=== PATIENT | female | born 1960 | race African-American/Black ===

== ENCOUNTER 2016-04-09 21:14 | Emergency (ER) | payer OTHER ==
[2016-04-09] MEDS ORDERED: Haloperidol TAB* 5 MG PO ONE (22:04)
[2016-04-09] MEDS ORDERED: diPHENhydraMINE PO* 50 MG PO ONE (22:04)
[2016-04-09 22:12] LABS: Hematocrit 43 % (35-47); Hemoglobin 14.4 g/dl (12.0-16.0); Mean Corpuscular HGB Conc 34 g/dl (31-36); Mean Corpuscular Hemoglobin 28 pg (27-31); Mean Corpuscular Volume 84 fL (80-97); Mean Platelet Volume 10 um3 (7.4-10.4); Red Blood Count 5.12 10^6/ul (4.0-5.4); Red Cell Distribution Width 14 % (10.5-15)
[2016-04-09 22:21] LABS: Urine Bacteria 1+ (Absent); Urine Bilirubin Negative (Negative); Urine Glucose Negative (Negative); Urine Nitrite Negative (Negative)
[2016-04-09 22:28] LABS: ALT 16 U/L (7-52); AST 21 U/L (13-39); Albumin 4.3 g/dL (3.2-5.2); Alkaline Phosphatase 61 U/L (34-104); Anion Gap 4 mmol/L (2-11); BUN/Creatinine Ratio 15.9 (8-20); Blood Urea Nitrogen 11 mg/dL (6-24); CO2 Carbon Dioxide 31 mmol/L (22-32); Calcium 9.5 mg/dL (8.6-10.3); Chloride 103 mmol/L (101-111); EGFR African American 113.2 (>60); Globulin 3.4 g/dL (2-4); Glucose 57 mg/dL (70-100); Potassium 3.7 mmol/L (3.5-5.0); Sodium 138 mmol/L (133-145); Total Protein 7.7 g/dL (6.4-8.9)
[2016-04-09] MEDS ORDERED: LORazepam TAB(*) 1 MG ONE (22:28)
[2016-04-09 22:30] LABS: Benzodiazepine Urine Screen None Detected (None Detect)
[2016-04-09] MEDS ORDERED: Sulfamethox/Trimethoprim SS 400/80* TAB PO ONE (22:32)
[2016-04-09] MEDS ORDERED: LORazepam TAB(*) 1 MG PO ONE (22:32)
[2016-04-09 22:37] VITALS: BP 153/92
[2016-04-09 22:51] LABS: Acetaminophen < 15 mcg/mL; Alcohol < 10 mg/dL (<10); Salicylate < 2.50 mg/dL (<30)
[2016-04-09 23:02] LABS: TSH (Thyroid Stimulating Horm) 3.98 mcIU/mL (0.34-5.60)
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
== END 2016-04-10 13:40 | disposition home or self-care (01) ==
LOC: ED 21:14
DX: F29 Unspecified psychosis not due to a substance or known physiological condition (principal); Z87.891 Personal history of nicotine dependence
CPT/HCPCS: 36415; 80053; 80307; 80320; 80329; 81003; 81015; 84443; 85025; 87086; 99283; A9270-GY; G0480

== ENCOUNTER 2017-01-27 17:01 | Emergency (ER) | payer MEDICAID ==
[2017-01-27 17:38] VITALS: BP 111/72
[2017-01-27 17:54] LABS: Hematocrit 38 % (35-47); Mean Corpuscular HGB Conc 34 g/dl (31-36); Mean Corpuscular Hemoglobin 29 pg (27-31); Mean Corpuscular Volume 86 fL (80-97); Mean Platelet Volume 9 um3 (7.4-10.4); Red Blood Count 4.44 10^6/ul (4.0-5.4); Red Cell Distribution Width 14 % (10.5-15); White Blood Count 6.7 10^3/ul (3.5-10.8)
[2017-01-27 18:06] LABS: ALT 12 U/L (7-52); AST 17 U/L (13-39); Alkaline Phosphatase 60 U/L (34-104); Anion Gap 4 mmol/L (2-11); BUN/Creatinine Ratio 19.2 (8-20); Blood Urea Nitrogen 14 mg/dL (6-24); CO2 Carbon Dioxide 30 mmol/L (22-32); Calcium 8.9 mg/dL (8.6-10.3); Chloride 106 mmol/L (101-111); EGFR African American 106.1 (>60); EGFR Non-African American 82.5 (>60); Globulin 2.7 g/dL (2-4); Glucose 88 mg/dL (70-100); Potassium 3.6 mmol/L (3.5-5.0); Sodium 140 mmol/L (133-145); Total Protein 6.7 g/dL (6.4-8.9)
[2017-01-27 18:33] LABS: Acetaminophen < 15 mcg/mL; Alcohol < 10 mg/dL (<10); Salicylate < 2.50 mg/dL (<30)
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
[2017-01-27 18:49] LABS: TSH (Thyroid Stimulating Horm) 2.17 mcIU/mL (0.34-5.60)
[2017-01-27 20:01] LABS: Urine Bilirubin Negative (Negative); Urine Glucose Negative (Negative); Urine Nitrite Negative (Negative)
[2017-01-27 20:10] LABS: Benzodiazepine Urine Screen None Detected (None Detect)
== END 2017-01-27 20:50 | disposition home or self-care (01) ==
LOC: ED 17:01
DX: F29 Unspecified psychosis not due to a substance or known physiological condition (principal); F41.9 Anxiety disorder, unspecified; Z87.891 Personal history of nicotine dependence
CPT/HCPCS: 36415; 80053; 80307; 80320; 80329; 81003; 83880; 84443; 85025; 99282; G0480

== ENCOUNTER 2017-02-04 12:38 | Emergency (ER) | payer BC, MEDICAID ==
[2017-02-04 12:57] VITALS: BP 147/86
--- NOTE | 2017-02-04 14:36 | UC ---
Rehan Prasad Jason, scribed for [facility] HealthJoaquin MD on 02/04/17 at 1405 . Skin Complaint HPI - HPI Summary HPI Summary: In Room: This patient is a 56 year old F presenting to [facility] with a chief complaint of skin rash since 1 month ago in [facility]. The patient rates the pain 0/10 in severity. Symptoms aggravated by nothing. Symptoms alleviated by nothing. Patient reports arms, back, and chest rash. Patient denies itching, stomach pain, and sinus pain. Patient has never been to hospital overnight for treatment. Patient includes she had a UTI 1 month ago. MD note: VSS, AFEBRILE, BP 147/86. Every day smoker. Visit history: seen for itching skin in 2016, otherwise noncontributory. On no prescription medications. Hx of HTN and Depression. Nurses note: c/o of a "dry" rash on her forearms, torso and back area for the past month. Pt states the rash does not itch or is painful. She tried scabie tx x 2 for another rash 1 month ago and has tried "an eczema cream" on these areas with out any relief. - History of Current Complaint Chief Complaint: UCRash Time Seen by Provider: 02/04/17 13:53 Stated Complaint: SKIN COMPLAINT Hx Obtained From: Patient Hx Last Menstrual Period: menopausal Onset/Duration: Gradual Onset, Lasting Weeks - since 1 month, Still Present Pain Intensity: 0 Pain Scale Used: 0-10 Numeric Location: Other - arms, back, chest Character: Redness Aggravating Factor(s): Nothing Alleviating Factor(s): Nothing Associated Signs & Symptoms: Positive: Negative - stomach pain, sinus pain, itching - Allergy/Home Medications Allergies/Adverse Reactions: Allergies Allergy/AdvReac Type Severity Reaction Status Date / Time Acetaminophen AdvReac See Comment Verified 02/04/17 12:58 Review of Systems All Other Systems Reviewed And Are Negative: Yes - Comments Additional Review of Systems Comments: A 12 point review of systems was completed and significantly positive for: bilateral arm, chest, and back rash. Negative for: Itching, stomach pain, and sinus pain. The remainder of the review was negative except as stated above in the HPI. PMH/Surg Hx/FS Hx/Imm Hx Previously Healthy: No Cardiovascular History: Hypertension Psychological History: Depression Other History Of: Negative For: HIV, Hepatitis B, Hepatitis C, Anticoagulant Therapy - Surgical History Surgical History: Yes Surgery Procedure, Year, and Place: Appendectomy, C Section x 2 - Family History Known Family History: Positive: Cardiac Disease - brother -- [place] before age of 50. , Diabetes Negative: Hypertension - Social History Occupation: Unemployed Lives: [facility] Alcohol Use: Weekly Alcohol Amount: 2-3 drinks a week Substance Use Type: None Smoking Status (MU): Light Every Day Tobacco Smoker Type: Cigarettes Amount Used/How Often: variable Length of Time of Smoking/Using Tobacco: social, very rarely Have You Smoked in the Last Year: Yes When Did the Patient Quit Smoking/Using Tobacco: 1.5 years ago Household Exposure Type: Cigarettes Physical Exam Triage Information Reviewed: Yes Vital Signs: Initial Vital Signs Temp 98.1 F 02/04/17 12:49 Pulse 67 02/04/17 12:49 Resp 14 02/04/17 12:49 BP 147/86 02/04/17 12:49 Pulse Ox 100 02/04/17 12:49 - Additional Comments General: The patient is well-nourished in no acute distress and in no acute pain. Skin: The skin is warm and dry and skin color reflects adequate perfusion. On the left posterior thorax is a mildly erythematous maculopapular eruption, primarily at the level of T-12. On the front of right tibia, there is a somewhat excoriated rash consistent with injury or healing contact dermatitis. On both arms there's a fading maculopapular rash without vesicles. There is no sign of cellulitis. HEENT: The head is normocephalic and atraumatic. The pupils are equal and reactive. The conjunctivae are clear and without drainage.Nares are patent and without drainage. Mouth reveals moist mucous membranes and the throat is without erythema and exudate. The external ears are intact. The ear canals are patent and without drainage. The tympanic membranes are intact. Neck is supple with full range of motion and non-tender. There are no carotid bruits. There is no neck vein distension. Respiratory: Chest is non-tender. Lungs are clear to auscultation and breath sounds are symmetrical and equal. Cardiovascular: Heart is regular rate and rhythm. There is no murmur or rub auscultated. There is no peripheral edema and pulses are symmetrical and equal. Abdomen: The abdomen is soft and non-tender. There are normal bowel sounds heard in all four quadrants and there is no organomegaly palpated. Musculoskeletal: There is no back pain noted. Extremities are non-tender with full range of motion. There is good capillary refill. There is no peripheral edema or calf tenderness elicited. Neurological: Patient is alert and oriented to person, place and time. The patient has symmetrical motor strength in all four extremities. Cranial nerves are grossly intact. Deep tendon reflexes are symmetrical and equal in all four extremities. Psychiatric: The patient has an appropriate affect and does not exhibit any anxiety or depression Course/Dx - Course Course Of Treatment: This patient is a 56 year old F presenting to [facility] with a chief complaint of skin rash since 1 month ago in [facility]. Hypertensive BP reading 147/86; patient referred to PCP within 1 day-4 wks for follow-up. - Differential Diagnoses - Skin Complaint Differential Diagnoses: Other - cellulitis, contact dermititis, scabies, insect bite - Diagnoses Provider Diagnoses: contact dermititis Discharge - Discharge Plan Condition: Stable Disposition: HOME Patient Education Materials: Contact Dermatitis (ED) Referrals: No Primary Care Phys,NOPCP [Primary Care Provider] - Kevin Maguire MD [Medical Doctor] - 2 Weeks [facility] [place] PHYSICIAN REFERRAL [Outside] - As Soon As Possible (Rasheeda Torres) Additional Instructions: Thank you for helping us improve patient care by filling out the My Point Survey. WE DISCUSSED: 1. Your skin condition needs further evaluation. I have given you a number to call to find a general doctor and I have given you the name of a metal fabricator apprentice. 2. Use the cream twice a day to areas that are irritated or itch. Your arm rash appears to be getting better. 3. Pay particular attention to your legs. Watch for infection especially where you scratch. Allow your arms to get better. 4. Re check at any time for pain, temperature, redness or new symptoms. 5. Call the hospital for physician referral; call the metal fabricator apprentice for follow up. Your blood pressure reading today was 147/86 , indicating HYPERTENSION. Follow- up with your primary care provider within 4 weeks for blood pressure readings and further evaluation. PLEASE SEEK CARE AT THE EMERGENCY DEPARTMENT IF SYMPTOMS WORSEN OR IF NEW SYMPTOMS DEVELOP. FOLLOW UP WITH YOUR PRIMARY CARE PHYSICIAN. The documentation as recorded by the Rehan balbuena Jason accurately reflects the service I personally performed and the decisions made by me, Joaquin Cuello MD.
== END 2017-02-04 14:39 | disposition home or self-care (01) ==
LOC: UCEAST 12:38
DX: L25.9 Unspecified contact dermatitis, unspecified cause (principal); F17.210 Nicotine dependence, cigarettes, uncomplicated
CPT/HCPCS: 99212; G0463

== ENCOUNTER 2017-04-18 14:16 | Inpatient (IN) | payer BC, MEDICAID ==
[2017-04-18 15:37] LABS: ABS Basophils 0.1 10^3/ul (0-0.2); ABS Eosinophils 0.1 10^3/ul (0-0.6); ABS Lymphocytes 1.2 10^3/ul (1.0-4.8); ABS Monocytes 0.6 10^3/ul (0-0.8); ABS Neutrophils 6.4 10^3/ul (1.5-7.7); ABS Nucleated RBC 0.1 10^3/ul; Eosinophil % 1.6 % (0-6); Hematocrit 41 % (35-47); Hemoglobin 14.2 g/dl (12.0-16.0); Lymphocyte % 14.4 % (25-47); Mean Corpuscular HGB Conc 35 g/dl (31-36); Mean Corpuscular Hemoglobin 30 pg (27-31); Mean Corpuscular Volume 86 fL (80-97); Mean Platelet Volume 9 um3 (7.4-10.4); Nucleated Red Blood Cells % 0.6; Platelet Count 260 10^3/ul (150-450); Red Blood Count 4.77 10^6/ul (4.0-5.4); Red Cell Distribution Width 14 % (10.5-15); White Blood Count 8.5 10^3/ul (3.5-10.8)
[2017-04-18 15:49] LABS: Urine Appearance Clear; Urine Blood 1+ (Negative); Urine Color Straw; Urine Ketones Negative (Negative); Urine Protein Negative (Negative); Urine Specific Gravity 1.001 (1.010-1.030); Urine Urobilinogen Negative (Negative)
[2017-04-18 15:54] LABS: EGFR Non-African American 83.5 (>60)
[2017-04-18] MEDS ORDERED: Hydrochlorothiazide TAB* 25 MG PO ONE (20:31)
--- NOTE | 2017-04-18 21:04 | RAD ---
Indication: Stroke. CT of the brain was performed without IV contrast. Ventricular structures are midline. No midline shift is noted. The extraction spaces are unremarkable. There is no evidence of intracranial mass or hemorrhage. No other high or low density lesions are identified. Mastoid air cells and paranasal sinuses are otherwise unremarkable. No significant changes noted since January 12, 2016. IMPRESSION: No intracranial mass or hemorrhage is noted.
--- NOTE | 2017-04-18 22:00 | PN ---
Sofy Prasad Edward, scribed for Adamaris Holliday MD on 04/18/17 at 2156 . Progress Note - Progress Note Date of Service: 04/18/17 Note: Pt signed out by Dr. Carpenter. After MH eval by Dr. Valera, pt will be admitted to [facility]. Dx: unspecified psychosis. The documentation as recorded by the Sofy balbuena Edward accurately reflects the service I personally performed and the decisions made by Miya jaimes Abdul, MD.
[2017-04-19] MEDS ORDERED: Al Hydrox/Mg Hydrox/Simet LIQ* 30 ML UDC PO PRN (00:58)
[2017-04-19] MEDS: Vitamin THERAPEUTIC TAB PO SCH (09:40)
--- NOTE | 2017-04-19 09:51 | ADMNOTE ---
History - Objective HPI: Psychiatric Attending History and Physical NAME: Tiffanie Huerta : 1960 AGE: 57 PROVIDER: Bruce Schrader D.O. DATE OF ADMISSION: 04/18/2017 JUSTIFICATION FOR ADMISSION: Patient is gravely disabled secondary to psychosis and has grossly impaired judgment which places her at risk to be danger to self or others. She requires imminent inpatient psychiatric admission on an involuntary basis for treatment and stabalization. 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 It appears that she began experiencing ideas of reference at work about 5 years ago which have progressed to paranoid ideation, delusions that she is being harrassed or "played with". Patient has been living in [facility] in [place] since returning from [place]. She has been out of work since May 2015. She has applied for jobs but has not been able to secure a new position. Patient has been living at the [facility] through [facility]. Patient called an ambulance as she was concerned about multiple bites on her arms and chest which she believed were bug bites. She has been increasingly preoccupied with what she believes are messages from the TV which she refers to as "words which are being spliced into the conversation of people acting on the TV". she believes that she has a gift of being able to decipher these messages. Some of the messages have been derogatory comments such as "Bitch" or "Whore" which she believes may be directed at her by unknown person or persons. Other messages are coming from drug dealers announcing that a drug deal is going to take place. Patient feels compelled to share these messaages she is receving with legal authorities. She went to [facility] in recent past and also called in a report by phone. She is frustrated as she doesn't believe she was taken seriously. Apparently she called the police again yesterday and when they arrived she was disorganized and delusional, claiming that she was a lab rat for [facility] [employer] and that she is being monitored by the government through a microchip which has been implanted in her upper arm. She also told police that [place] had changed since she was last here because the mountains have been [place]. Patient reported in ER that she was "mentally distressed" and "not mentally safe" because she had been "contaminated over and over". Denies history of head trauma,epilepsy, psychiatric illness, or drug abuse. PAST PSYCHIATRIC HISTORY: Patient denies history of psychiaric illness, treatment or hospitalization denies history of diagnosed psychosis, mood disorder, neurological disorder SUBSTANCE ABUSE HISTORY: Reports drinking alcohol three times daily smokes 2 to 3 cigarettes daily PAST MEDICAL HISTORY: denies history of Csection X2 history of appendectomy CURRENT MEDICATIONS: none FAMILY PSYCHIATRIC HISTORY: reports that no one that she knows has been diagnosed with psychiatric disorder in her family but she believes that her brothers both suffer from depression FAMILY/PSYCHOSOCIAL HISTORY: Born in the [place] to [place] parents. graduated high school in [place]. 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 Subsequently, she got to an [facility] with who she had two children and moved with family to [place] where she raised her children. 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 Patient reports it was on this job that she began to have belief that "bizarre stuff is going on". She relates that she was accused of taking pictures of other employees. but maintains that the opposite was true. That is, she believes employees at that job were taking photographs of her secretly. Patient reports that after leaving this position she worked at [employer] where she worked for two years. She related that she saw alot of suspicious behaviors there as well which she believes were covert and bizqarre. She believes employers were trying to communicate something to her through bizarre behaviors of the employees although she is unable to say exactly what the content of those communications were. 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 She was very suspicious of things said to her by other employees, believing that there was hidden meaning in the choice of words. She was perplexed but believed that people may have been conspiring against her. Patient reports that she has two sons. Jose Alberto aged 21 works two jobs and lives in [place]. 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 patient reprots she has friends but feels very bad athat she doesn't have money. She identifies lack of money as her main stressor. family lives in [place]. She has 1 brother . two brothers and one sister live in the [place]. She denies legal probelms or history of incarceration. She also denies history of physical or sexual Trauma. REVIEW OF SYSTEMS: all noncontributory per hospitalist's H and P performed in ED PHYSICAL EXAMINATION: UNREMARKABLE (NORMAL PHYSICAL EXAMINATION) per hospitalist 's H and P performed in the ED Addendum to physical Exam: patient has raised red papules on both upper extremities and scattered on face and neck as well which resemble insect bites. right eye with upper lid edema. Extraocular muscles intact, conjunctivae not injected no discharge from eye there is a papule directly above right upper lid patient denies eye pain or photophobia MENTAL STATUS EXAMINATION: well developed and nourished 57 year old woman who has a thin frame. Patient appears mildly disheveled. Her hygiene would best be described as fair. she was fairly well related. speech does appear mildly pressured and mildly hyperverbal. normal volume and rhythm. she speaks c[place] islander perfectly and is articulate with good vocabulary. patient reports mood as euthymic. she denies dysphoria, amotivation, anergia, anhedonia. she admits to feeling hopeless, and a loss of interest because she cant secure a job and has no money with which to go out with . she denies past history or current suicidal ideation. she denies HI. she further denies AH,VH. Thought process: patient is mostly goal directed and organized. she is not tangential, does not exhibit thought blocking. she denies racing thoughts. Her responses are relevant. Thought content reveals that patient has been grappling for many years with referential thinking , paranoid and bizarre delusions which range from the belief that she is being used as a lab rat by [facility] [employer] to believing that innocent remarks or getstures made by coworkers have a sublimal or hidden meaning which signifies that someone is trying to harrass her, or iinsult her or play games with her. She also believes that she is receiving hidden messages from the TV which communicate illegal activities which are going to take place and which she feels compelled to report to authorities. Alert and fully oriented. Denies memory, concentration problems. Insight is limited. Judgment appears somewhat impaired by delusional thinking. LABORATORY DATA: Laboratory Results - last 24 hr 04/19/17 04/19/17 06:56 06:56 Hemoglobin A1c 5.1 Triglycerides 85 Cholesterol 188 LDL Cholesterol 116 HDL Cholesterol 55.0 Laboratory Last Values WBC 8.5 10^3/ul (3.5-10.8) 04/18/17 15:25 RBC 4.77 10^6/ul (4.0-5.4) 04/18/17 15:25 Hgb 14.2 g/dl (12.0-16.0) 04/18/17 15:25 Hct 41 % (35-47) 04/18/17 15:25 MCV 86 fL (80-97) 04/18/17 15:25 MCH 30 pg (27-31) 04/18/17 15:25 MCHC 35 g/dl (31-36) 04/18/17 15:25 RDW 14 % (10.5-15) 04/18/17 15:25 Plt Count 260 10^3/ul (150-450) 04/18/17 15:25 MPV 9 um3 (7.4-10.4) 04/18/17 15:25 Neut % (Auto) 76.0 % (38-83) 04/18/17 15:25 Lymph % (Auto) 14.4 % (25-47) L 04/18/17 15:25 Caroline % (Auto) 7.4 % (0-7) H 04/18/17 15:25 Eos % (Auto) 1.6 % (0-6) 04/18/17 15:25 Baso % (Auto) 0.6 % (0-2) 04/18/17 15:25 Absolute Neuts (auto) 6.4 10^3/ul (1.5-7.7) 04/18/17 15:25 Absolute Lymphs (auto) 1.2 10^3/ul (1.0-4.8) 04/18/17 15:25 Absolute Monos (auto) 0.6 10^3/ul (0-0.8) 04/18/17 15:25 Absolute Eos (auto) 0.1 10^3/ul (0-0.6) 04/18/17 15:25 Absolute Basos (auto) 0.1 10^3/ul (0-0.2) 04/18/17 15:25 Absolute Nucleated RBC 0.1 10^3/ul 04/18/17 15:25 Nucleated RBC % 0.6 04/18/17 15:25 Sodium 136 mmol/L (133-145) 04/18/17 15:25 Potassium 3.9 mmol/L (3.5-5.0) 04/18/17 15:25 Chloride 102 mmol/L (101-111) 04/18/17 15:25 Carbon Dioxide 28 mmol/L (22-32) 04/18/17 15:25 Anion Gap 6 mmol/L (2-11) 04/18/17 15:25 BUN 9 mg/dL (6-24) 04/18/17 15:25 Creatinine 0.72 mg/dL (0.51-0.95) 04/18/17 15:25 Est GFR ( Amer) 107.4 (>60) 04/18/17 15:25 Est GFR (Non-Af Amer) 83.5 (>60) 04/18/17 15:25 BUN/Creatinine Ratio 12.5 (8-20) 04/18/17 15:25 Glucose 97 mg/dL (70-100) 04/18/17 15:25 Hemoglobin A1c 5.1 % (4.0-5.6) 04/19/17 06:56 Calcium 9.6 mg/dL (8.6-10.3) 04/18/17 15:25 Total Bilirubin 0.40 mg/dL (0.2-1.0) 04/18/17 15:25 AST 19 U/L (13-39) 04/18/17 15:25 ALT 17 U/L (7-52) 04/18/17 15:25 Alkaline Phosphatase 60 U/L (34-104) 04/18/17 15:25 Total Protein 7.5 g/dL (6.4-8.9) 04/18/17 15:25 Albumin 4.4 g/dL (3.2-5.2) 04/18/17 15:25 Globulin 3.1 g/dL (2-4) 04/18/17 15:25 Albumin/Globulin Ratio 1.4 (1-3) 04/18/17 15:25 Triglycerides 85 mg/dL 04/19/17 06:56 Cholesterol 188 mg/dL 04/19/17 06:56 LDL Cholesterol 116 mg/dL 04/19/17 06:56 HDL Cholesterol 55.0 mg/dL 04/19/17 06:56 TSH 2.05 mcIU/mL (0.34-5.60) 04/18/17 15:25 Urine Color Straw 04/18/17 15:35 Urine Appearance Clear 04/18/17 15:35 Urine pH 6.0 (5-9) 04/18/17 15:35 Ur Specific [place] 1.001 (1.010-1.030) L 04/18/17 15:35 Urine Protein Negative (Negative) 04/18/17 15:35 Urine Ketones Negative (Negative) 04/18/17 15:35 Urine Blood 1+ (Negative) H 04/18/17 15:35 Urine Nitrate Negative (Negative) 04/18/17 15:35 Urine Bilirubin Negative (Negative) 04/18/17 15:35 Urine Urobilinogen Negative (Negative) 04/18/17 15:35 Ur Leukocyte Esterase Negative (Negative) 04/18/17 15:35 Urine WBC (Auto) Absent (Absent) 04/18/17 15:35 Urine RBC (Auto) Absent (Absent) 04/18/17 15:35 Ur Squamous Epith Cells Present (Absent) H 04/18/17 15:35 Urine Bacteria 1+ (Absent) H 04/18/17 15:35 Urine Glucose Negative (Negative) 04/18/17 15:35 Salicylates < 2.50 mg/dL (<30) 04/18/17 15:25 Urine Opiates Screen None detected (None Detect) 04/18/17 15:35 Acetaminophen < 15 mcg/mL 04/18/17 15:25 Ur Barbiturates Screen None detected (None Detect) 04/18/17 15:35 Ur Phencyclidine Scrn None detected (None Detect) 04/18/17 15:35 Ur Amphetamines Screen None detected (None Detect) 04/18/17 15:35 U Benzodiazepines Scrn None detected (None Detect) 04/18/17 15:35 Urine Cocaine Screen None detected (None Detect) 04/18/17 15:35 U Cannabinoids Screen None detected (None Detect) 04/18/17 15:35 Serum Alcohol < 10 mg/dL (<10) 04/18/17 15:25 IMPRESSION: 57 yo homeless woman with solid work history since age 19 and no past psychiatric history presents with onset of psychosis over the past 5 to 7 years. It appears that symptoms started with ideas of reference and progressed on to parnaoid and persecutory delusions. Presently patient presents with bizarre delusions that TV is communuicating with her. patient denies any past psychiatric treatment or hospitalization. patient has not worked in 2 years consistent with psychotic disorder. differential includes psychotic depression (no evidence of depression), schizophrenia (unlikely secondary to late onset), secondary psychosis (CT normal no history of HTN,diabetes, neurological disorder, head trauma, MS). Patient most likely has delusional disorder persecutory type, although unspecified psychosis is also possible. other possiblity is drug or alcohol related paranoid disorder. DIAGNOSES: Unspecified psychotic disorder rule out Delusional Disorder rule out alcohol induced paranoid disorder rule out paranoid personality disorder with superimposed delusional disorder or psychotic depression PLAN: q 15 min observation status patient is involuntary status 939 individiual and group therapy, milieu increase data base by talking with patient's family or friends MMPI and Psychological consult appreciated to delineate diagnosis which is unclear at this point. temazepam 15 mg QHS prn insomnia no other meds until after psychological consult discharge planning and social work consult. Lab Results: Laboratory Tests 04/19/17 04/19/17 06:56 06:56 Hemoglobin A1c 5.1 Triglycerides 85 Cholesterol 188 LDL Cholesterol 116 HDL Cholesterol 55.0 Plan - Treatment Plan Medications: Current Medications Al Hydrox/Mg Hydrox/Simethicone (Maalox Plus*) 30 ml PO Q4H PRN PRN Reason: INDIGESTION Multivitamins (Theragran Tab*) 1 tab PO DAILY ELIZABETH Last Admin: 04/19/17 09:40 Dose: Not Given
--- NOTE | 2017-04-19 10:25 | ED ---
Jignesh Prasad Thomas, scribed for Daniel Carpenter MD on 04/18/17 at 1518 . Complex/Multi-Sys Presentation - HPI Summary HPI Summary: The patient is a 57 year old female who states she is coming to the emergency department for evaluation of sparse welts throughout her body that she attributes to bed bugs. The patient is staying at the [facility]. Per nursing documentation, the patient was brought in to the emergency department by a state police clerk. The patient told the officer that she is a lab rat at [employer] and that the government implanted a chip into her arm. The patient states the mountains around [place] were all moved since I was last here. - History Of Current Complaint Chief Complaint: EDMentalHealth Time Seen by Provider: 04/18/17 14:31 Hx Obtained From: Patient Onset/Duration: Still Present Timing: Constant Severity Currently: Mild Severity Initially: Mild Location: Negative - sparse diffuse welts Alleviating Factor(s): None Associated Signs And Symptoms: Positive: Other - Paranoia, welts - Allergies/Home Medications Allergies/Adverse Reactions: Allergies Allergy/AdvReac Type Severity Reaction Status Date / Time acetaminophen AdvReac See Comment Verified 04/19/17 01:38 PMH/Surg Hx/FS Hx/Imm Hx Endocrine/Hematology History: Denies: Hx Anticoagulant Therapy, Hx Diabetes, Hx Thyroid Disease Cardiovascular History: Reports: Hx Hypertension - pre Denies: Hx Congestive Heart Failure, Hx Deep Vein Thrombosis, Hx Myocardial Infarction, Hx Pacemaker/ICD Respiratory History: Denies: Hx Asthma, Hx Chronic Obstructive Pulmonary Disease (COPD), Hx Lung Cancer, Hx Pneumonia, Hx Pulmonary Embolism GI History: Denies: Hx Gall Bladder Disease, Hx Gastrointestinal Bleed, Hx Ulcer, Hx Urosepsis History: Denies: Hx Kidney Stones, Hx Renal Disease Neurological History: Denies: Hx Dementia, Hx Migraine, Hx Seizures, Hx Transient Ischemic Attacks (TIA) Psychiatric History: Denies: Hx Anxiety, Hx Eating Disorder, Hx Depression, Hx Schizophrenia, Hx Bipolar Disorder, Hx of Violent Episodes Against Others - Surgical History Surgery Procedure, Year, and Place: Appendectomy, C Section x 2 Infectious Disease History: No Infectious Disease History: Denies: Hx Hepatitis, Hx Human Immunodeficiency Virus (HIV), History Other Infectious Disease, Traveled Outside the [place] in Last 30 Days - Family History Known Family History: Positive: Cardiac Disease - brother -- [place] before age of 50. , Diabetes Negative: Hypertension - Social History Alcohol Use: Weekly Alcohol Amount: 2-3 drinks a week Hx Substance Use: No Substance Use Type: Reports: None Hx Tobacco Use: Yes Smoking Status (MU): Light Every Day Tobacco Smoker Type: Cigarettes Amount Used/How Often: variable Length of Time of Smoking/Using Tobacco: social, very rarely Have You Smoked in the Last Year: Yes Review of Systems Negative: Fever Positive: Other - Welts Positive: Other - Paranoia All Other Systems Reviewed And Are Negative: Yes Physical Exam - Summary Physical Exam Summary: Appearance: The patient is well-nourished in no acute distress and in no acute pain. Skin: There are small red welts sparsely on her face and arms. The skin is warm and dry and skin color reflects adequate perfusion. HEENT: The head is normocephalic and atraumatic. The pupils are equal and reactive. The conjunctivae are clear and without drainage. Nares are patent and without drainage. Mouth reveals moist mucous membranes and the throat is without erythema and exudate. The external ears are intact. The ear canals are patent and without drainage. The tympanic membranes are intact. Neck: the neck is supple with full range of motion and non-tender. There are no carotid bruits. There is no neck vein distension. Respiratory: Chest is non-tender. Lungs are clear to auscultation and breath sounds are symmetrical and equal. Cardiovascular: Heart is regular rate and rhythm.~There is no murmur or rub auscultated.~There is no peripheral edema and pulses are symmetrical and equal. Abdomen: The abdomen is soft and non-tender. There are normal bowel sounds heard in all four quadrants and there is no organomegaly palpated. Musculoskeletal: There is no back tenderness noted. Extremities are non-tender with full range of motion. There is good capillary refill. There is no peripheral edema or calf tenderness elicited. Neurological: Patient is alert and oriented to person, place and time. The patient has symmetrical motor strength in all four extremities. Cranial nerves are grossly intact. Deep tendon reflexes are symmetrical and equal in all four extremities. Psychiatric: The patient has an appropriate affect and does not exhibit any anxiety or depression. Triage Information Reviewed: Yes Vital Signs On Initial Exam: Initial Vitals Temp Pulse Resp BP Pulse Ox 98.2 F 78 18 161/103 100 04/18/17 14:48 04/18/17 14:48 04/18/17 14:48 04/18/17 14:48 04/18/17 14:48 Vital Signs Reviewed: Yes Diagnostics - Vital Signs Vital Signs Temp Pulse Resp BP Pulse Ox 04/18/17 14:48 98.2 F 78 18 161/103 100 - Laboratory Lab Results: Lab Results 04/18/17 04/18/17 04/18/17 Range/Units 15:25 15:25 15:35 WBC 8.5 (3.5-10.8) 10^3/ul RBC 4.77 (4.0-5.4) 10^6/ul Hgb 14.2 (12.0-16.0) g/dl Hct 41 (35-47) % MCV 86 (80-97) fL MCH 30 (27-31) pg MCHC 35 (31-36) g/dl RDW 14 (10.5-15) % Plt Count 260 (150-450) 10^3/ul MPV 9 (7.4-10.4) um3 Neut % (Auto) 76.0 (38-83) % Lymph % (Auto) 14.4 L (25-47) % Addison % (Auto) 7.4 H (0-7) % Eos % (Auto) 1.6 (0-6) % Baso % (Auto) 0.6 (0-2) % Absolute Neuts (auto) 6.4 (1.5-7.7) 10^3/ul Absolute Lymphs (auto) 1.2 (1.0-4.8) 10^3/ul Absolute Monos (auto) 0.6 (0-0.8) 10^3/ul Absolute Eos (auto) 0.1 (0-0.6) 10^3/ul Absolute Basos (auto) 0.1 (0-0.2) 10^3/ul Absolute Nucleated RBC 0.1 10^3/ul Nucleated RBC % 0.6 Sodium 136 (133-145) mmol/L Potassium 3.9 (3.5-5.0) mmol/L Chloride 102 (101-111) mmol/L Carbon Dioxide 28 (22-32) mmol/L Anion Gap 6 (2-11) mmol/L BUN 9 (6-24) mg/dL Creatinine 0.72 (0.51-0.95) mg/dL Est GFR ( Amer) 107.4 (>60) Est GFR (Non-Af Amer) 83.5 (>60) BUN/Creatinine Ratio 12.5 (8-20) Glucose 97 (70-100) mg/dL Calcium 9.6 (8.6-10.3) mg/dL Total Bilirubin 0.40 (0.2-1.0) mg/dL AST 19 (13-39) U/L ALT 17 (7-52) U/L Alkaline Phosphatase 60 (34-104) U/L Total Protein 7.5 (6.4-8.9) g/dL Albumin 4.4 (3.2-5.2) g/dL Globulin 3.1 (2-4) g/dL Albumin/Globulin Ratio 1.4 (1-3) TSH 2.05 (0.34-5.60) mcIU/mL Urine Color Urine Appearance Urine pH (5-9) Ur Specific [place] (1.010-1.030) Urine Protein (Negative) Urine Ketones (Negative) Urine Blood (Negative) Urine Nitrate (Negative) Urine Bilirubin (Negative) Urine Urobilinogen (Negative) Ur Leukocyte Esterase (Negative) Urine WBC (Auto) (Absent) Urine RBC (Auto) (Absent) Ur Squamous Epith Cells (Absent) Urine Bacteria (Absent) Urine Glucose (Negative) Salicylates < 2.50 (<30) mg/dL Urine Opiates Screen None detected (None Detect) Acetaminophen < 15 mcg/mL Ur Barbiturates Screen None detected (None Detect) Ur Phencyclidine Scrn None detected (None Detect) Ur Amphetamines Screen None detected (None Detect) U Benzodiazepines Scrn None detected (None Detect) Urine Cocaine Screen None detected (None Detect) U Cannabinoids Screen None detected (None Detect) Serum Alcohol < 10 (<10) mg/dL 04/18/17 Range/Units 15:35 WBC (3.5-10.8) 10^3/ul RBC (4.0-5.4) 10^6/ul Hgb (12.0-16.0) g/dl Hct (35-47) % MCV (80-97) fL MCH (27-31) pg MCHC (31-36) g/dl RDW (10.5-15) % Plt Count (150-450) 10^3/ul MPV (7.4-10.4) um3 Neut % (Auto) (38-83) % Lymph % (Auto) (25-47) % Addison % (Auto) (0-7) % Eos % (Auto) (0-6) % Baso % (Auto) (0-2) % Absolute Neuts (auto) (1.5-7.7) 10^3/ul Absolute Lymphs (auto) (1.0-4.8) 10^3/ul Absolute Monos (auto) (0-0.8) 10^3/ul Absolute Eos (auto) (0-0.6) 10^3/ul Absolute Basos (auto) (0-0.2) 10^3/ul Absolute Nucleated RBC 10^3/ul Nucleated RBC % Sodium (133-145) mmol/L Potassium (3.5-5.0) mmol/L Chloride (101-111) mmol/L Carbon Dioxide (22-32) mmol/L Anion Gap (2-11) mmol/L BUN (6-24) mg/dL Creatinine (0.51-0.95) mg/dL Est GFR ( Amer) (>60) Est GFR (Non-Af Amer) (>60) BUN/Creatinine Ratio (8-20) Glucose (70-100) mg/dL Calcium (8.6-10.3) mg/dL Total Bilirubin (0.2-1.0) mg/dL AST (13-39) U/L ALT (7-52) U/L Alkaline Phosphatase (34-104) U/L Total Protein (6.4-8.9) g/dL Albumin (3.2-5.2) g/dL Globulin (2-4) g/dL Albumin/Globulin Ratio (1-3) TSH (0.34-5.60) mcIU/mL Urine Color Straw Urine Appearance Clear Urine pH 6.0 (5-9) Ur Specific [place] 1.001 L (1.010-1.030) Urine Protein Negative (Negative) Urine Ketones Negative (Negative) Urine Blood 1+ H (Negative) Urine Nitrate Negative (Negative) Urine Bilirubin Negative (Negative) Urine Urobilinogen Negative (Negative) Ur Leukocyte Esterase Negative (Negative) Urine WBC (Auto) Absent (Absent) Urine RBC (Auto) Absent (Absent) Ur Squamous Epith Cells Present H (Absent) Urine Bacteria 1+ H (Absent) Urine Glucose Negative (Negative) Salicylates (<30) mg/dL Urine Opiates Screen (None Detect) Acetaminophen mcg/mL Ur Barbiturates Screen (None Detect) Ur Phencyclidine Scrn (None Detect) Ur Amphetamines Screen (None Detect) U Benzodiazepines Scrn (None Detect) Urine Cocaine Screen (None Detect) U Cannabinoids Screen (None Detect) Serum Alcohol (<10) mg/dL Result Diagrams: 04/18/17 15:25 04/18/17 15:25 Lab Statement: Any lab studies that have been ordered have been reviewed, and results considered in the medical decision making process. Complex Multi-Symp Course/Dx Course Of Treatment: Ms Huerta presented with a concern for bug bites and does, indeed, appear to have some bug bites, She was clearly delusional when she called the police to report the bug bites and, therefore, brought in on a 941. She continued with delusional statements here and was medically cleared. She is in the Flex Unit awaiting a MHE at change of shift. - Diagnoses Provider Diagnoses: Acute psychosis Discharge - Discharge Plan Condition: Stable Disposition: OTHER Discharge Disposition Comment: Signed over to Dr. Holliday at change of shift The documentation as recorded by the Jignesh balbuena Thomas accurately reflects the service I personally performed and the decisions made by me, Daniel Carpenter MD.
[2017-04-19] MEDS ORDERED: ALPRAZolam TAB* 0.25 MG PO PRN (15:09)
[2017-04-19] MEDS ORDERED: Temazepam CAP* 15 MG PO PRN (15:09)
[2017-04-20] MEDS: Vitamin THERAPEUTIC TAB PO SCH (09:46)
--- NOTE | 2017-04-20 16:06 | PN ---
Subjective - Subjective Subjective: PSYCHIATRIC ATTENDING PROGRESS NOTE Patient did not attend any groups today. She put in a 72 hour letter yesterday requesting discharge from the hospital. Patient spent most of the morning pacing the halls and requesting to speak with me. I met with the patient after lunch. She was upset and angry that she was not being permitted to discharge from the hospital. I requested that she sign a release of information to speak with someone who knew her such as a family member or friend. She questioned me about this, suspicious of my motives and verbalized whether I would attempt to tell untruths about her. I shared that the purpose of speaking to someone she knows would be to learn what her baseline emotional and mental functioning is and to ask whether they believe that your current mental functioning is at baseline or has changed. Patient subsequently told me it would be ok to talk with her son and her close friend who is a social worker health services. I asked patient to sign IAN. patient subsequently perseverated on my calling the individuals, concerned about what I would say. She then indicated that she did n ot want me to talk to her son but would allow me to talk to her friend. When I asked for her signature she requested that I write out exactly what information I was requesting. She then insisted that I rewrite certain words which she didn't feel were legible as she was concerned that these words might be misinterpreted. For the rest of the afternoon patient was somewhat agitated pacing the halls asking to speak with me, expecting that I would speak to her friend and would discharge her today (which I never told her). nursery worker and I attempted to reach friend Danette Austin at [phone] but reached a voice maiil and left message for her to return the call. patient continued to ask nurses about talking with me. I came out and explained that I had not reached friend but left message. Patient became agitated, speaking in loud voice. she clearly was angry and insisted that she be discharged. she began to devalue the hospital, the staff. She became somewhat disroganized, and began talking about being a lab rat, stating that she was being mistreated. when asked to lower her voice due to effect on other patients, she became louder, stating that it was good that the other patient's heard what was happening. Patient's behavioral and verbal responses suggest antisocial, paranoid, borderline character pathology. Her belief that she is being toyed with, harrassed, mistreated, receiving communications from the the TV and reading hidden meaning into things she sees, hears on TV is consistent with persecutory delusions. 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 She appears to have had deterioratioin across multiple domains of functioning including occupational, social and familial over the past 5 to 7 years likely due to paranoid ideation which has developed into full blown delusional belief system which has both persecutory and bizarre themes. patient's psychotic symptoms are causing her to become agitated and causing her to become confrontational and angry as she feels threatened. The presence of agitation and the belief that one is being threatened is a potential antecedent to violence/agression. At this time it is my professional opinion that patient requires on going 24 hour supervision on an inpatient psychiatric unit as she is potential danger to self or others. Patient's condition requires medical treatment. patient is gravely disabled, has poor insight, and has severely imipaired judgment. She lacks the capacity to make informed medical decisions on her own behalf. For this reason I will apply to probate court to permit us to retain patient in the hospital. I will also request treatment against objection as patient has made it clear that she refuses to accept any medical treatment for a condition that she doesnt believe exists. court date is set for this coming Wednesday04/23/2017 Plan: as above will write patiient for ativan 1mg and haldol 2 mg q 4h prn agitation but it is unlikely that patient will consent to take it if it is offered.
--- NOTE | 2017-04-20 20:21 | CONS ---
PSYCHOLOGICAL REPORT: DATE OF CONSULTATION: 04/20/17 REASON FOR REFERRAL: Tiffanie or "Geeta" was referred for personality testing secondary to concerns regarding possible psychotic range disturbance. TESTS ADMINISTERED: Geeta completed the [place] Multiphasic Personality Inventory-2 (MMPI-2) in an efficient fashion. She was given feedback regarding results of individual conversation. RELEVANT HISTORY: Geeta is a 57-year-old woman of [place] descent who had recently returned to [place], [place] from [facility] where she had been living for the past year. To summarize her history succinctly, she had moved up here to be and raised 2 sons. 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 She described her difficulties while working at the [place] [employer] where she felt she was being harassed and manipulated by employees there and in fact went to the union to make complaints about her concerns. She has been out of work since May 2015 and has applied for work, but has not been able to secure any position. She feels this is reflective of ageism in terms of her difficulties in finding new employment. She also describes perceptions that she was receiving messages from TV. In conversation with this staff writer, Geeta discussed how difficulties in different work circumstances continued to recur where she was being harassed by employees in various circumstances. Geeta currently presents as relevant and coherent in conversation and is polite and respectful. She does not display insight regarding discussion of paranoid mentation and becomes quite defensive in this conversation. She is demanding discharge immediately and is fixated on her recent difficulties with staying in a local hotel through the homeless long-term where she appears to have been bitten by bedbugs or some similar insect of some sort. Her difficulties with these bites seem to be dissipating quickly. She describes intentions and hopes of secured employment, so she can find stable housing, but does not describe any active interview opportunities presently. TEST RESULTS: Geeta elevates both the FB and the lie scale on validity indicators with both elevations here occurring with T scores in the middle 70s. Despite these being elevated, her clinical profile is felt to be valid as it does reflect significantly elevated paranoia scale (T = 75) with a minor elevation on schizophrenia scale (T = 65). She does not elevate the depression nor the hypomania scales. It is thought that Geeta provides us with a valid protocol, although it impresses this staff writer as "the best foot forward" endorsement style. This means that her elevated paranoia scale is likely to have been higher if she was not trying to deny psychopathologies to some degree. IMPRESSION AND RECOMMENDATIONS: Presently, Geeta impresses as having impaired insight regarding her significant paranoid symptomatology, which includes ideas of reference. Her recurrent difficulties in various work place environments and subsequent failure to maintain employment is felt to be secondary to what may be paranoid personality disorder, or perhaps a persecutory delusional disorder. Her lack of insight is fundamental to formulation of the case in that she is very defended and is hoping the hospital could help initiate various investigations in her different places of employment to prove her suspicions. Feedback encouraged her to be compliant with recommended medications and give this hospitalization more time, so she could be monitored if she did begin to take medications. She was adamant and steadfast in her denial of any psychopathology as well as in demanding immediate discharge. [id number]/[facility] #: [id number] LILIA
--- NOTE | 2017-04-21 10:28 | PN ---
Subjective - Subjective Subjective: PSYCHIATRIC ATTENDING PROGRESS NOTE: continues to isolate in room. does not attend groups patient met with cad design engineer today who will be representing her at court on Wednesday. Patient agreed to be interviewed today. She was not volatile and angry and agitated as she was yesterday. Left message with patient's friend (this is second message, first message left yesterday by social media strategist) to please call either myself or social media strategist I explained to her that I was going to court to retain her in the hospital as I was concerned about her psychotic symptoms which are interfering with her ability to function independently and safetly in the community. Patient disagrees. She tells me that she appreciates my concern but that she intends to explain to the mine geologist that she has seen messages being spliced into the television programs She has reported it to various authorities such as management at the hotel, the police and the FBI. She believes firmly that she can prove through "certain technologies" that these messages are in fact occurring on the TV. She believes mine geologist will rule in her favor. MSE: remains highly defensive, mildly agitated patient is organized and coherent. she continues to be highly suspicious, untrusting, paranoid and has xenia bizarre delusions that TV is directing messages at her in her hotel room. very poor insight. judgment is very impaired Impression: rule out Paranoid Personality Disorder Delusional Disorder unknown etiology Plan: patient's psychotic symptoms place her at high risk especially given that she feels persecuted and threatened We will request court order for involuntary committment. will not pursue TOO at this time as I do not feel it would be in patient's best interests to give her IM against her will my preference would be to request family involvement or have friends or other relative convince her to accept a trial of antipsychotic medication. she still will allow no contact with anyoone in her family Plan - Plan Treatment Plan: Name: ANN VENTURA Birthdate: 1960 [id number] Medications: Current Medications Al Hydrox/Mg Hydrox/Simethicone (Maalox Plus*) 30 ml PO Q4H PRN PRN Reason: INDIGESTION Alprazolam (Xanax Tab*) 0.25 mg PO Q3H PRN PRN Reason: ANXIETY Multivitamins (Theragran Tab*) 1 tab PO DAILY ELIZABETH Last Admin: 04/20/17 09:46 Dose: Not Given Temazepam (Restoril Cap*) 15 mg PO BEDTIME PRN PRN Reason: INSOMNIA
[2017-04-21] MEDS: Vitamin THERAPEUTIC TAB PO SCH (10:45)
--- NOTE | 2017-04-22 11:36 | PN ---
Subjective - Subjective Subjective: PSYCHIATRIC ATTENDING PROGRESS NOTE Phone conversation with patient's friend Danette Austin who knows patient for about 25 years. 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 Told me that patient's paranoia began around 2014 timeframe. has been preoccupied since then with people harrassing her or mistreating her. paranoia has resulted in her losing or leaving several positions. She recently went out with [employer] for her birthday. patient's 19 and 23 yo sons were both present. She reports that [employer] enjoyed the evening, was not verbalizing paranoid ideation or delusons on this night. She told me that she has advised her friend to seek treatment including therapy and medication and [facility]. Patient never followed up. She also shared that patient was living for a sort term with another friend named Falguni but was asked to leave after some conflict ensued between Falguni's son and [employer]. Ms. Austin identified herself as a nursing home social worker and therapist. when I inquired about potential for being dangerous to self or others, She told me that she had never seen any aggressive or assaultive behaviors and had never known her to have suicidal ideation or impulses. she described her as very strong willed, almost to the point of being defiant when she believes that she is right. Met with patient X 30 min patient told me immediately upon sitting down that she felt someone might have poisoned her because she didn't feel right. subsequently, I attempted to engage her in discussion of her paranoid delusional beliefts. she listened to what I had to say and subsequently went into a long monologue about knowing that others dont believe her but that she was going to get to the bottom of these strange things that have been happening to her. She intends to continue to make reports to authority figures until she has answers which explain why she is being targeted and who exactly is behind it. patient denied suicidal ideation she also denied homicidal ideation. when asked what she would do if discharged. she told me she intends to buy a pair of sneakers and begin running again. she will [facility] because "I have no other alternative at this time". She told me she refused to take any medication and would not even consider taking it, no matter how long she was retained Impression: patient has delusional disorder persecutory type. I have observed and examined her for past week Patient may in fact benefit from medication but she refuses. She is not a danger to self or others. I do not believe that there is anything to be gained by retaining her in the hospital. If I thought she would ultimately accept medication voluntarily I would retain her. I would not pursue Treatment against objection at this time as I do not feel patient lacks capacity to make medical decisions about her own care. Her insight is poor. She is not so gravely disabled that her right to refute medical care should be justifiably denied. For these reasons, I have agreed to discharge patient tomorrow morning. I encouraged patient to accept and attend the follow up appointment that we are going to solidify for her. I am doubtful that she will attend. Plan: have spoken with Patient's nursing home social worker about my plan to discharge patient in [place] [facility] has been notified and we have been informed that patient must be discharged by 10 AM tomorrow unless she rescinds her letter patient will be discharged at 10:00 AM tomorrow morning Plan - Plan Treatment Plan: Name: ANN VENTURA Birthdate: 1960 [id number] Medications: Current Medications Al Hydrox/Mg Hydrox/Simethicone (Maalox Plus*) 30 ml PO Q4H PRN PRN Reason: INDIGESTION Alprazolam (Xanax Tab*) 0.25 mg PO Q3H PRN PRN Reason: ANXIETY Multivitamins (Theragran Tab*) 1 tab PO DAILY ELIZABETH Last Admin: 04/22/17 12:44 Dose: Not Given Temazepam (Restoril Cap*) 15 mg PO BEDTIME PRN PRN Reason: INSOMNIA
--- NOTE | 2017-04-22 11:54 | PN ---
[facility]: Group Therapy Note - Service Type Service Type: 50780 Group Psychotherapy - Cognitive Behavioral Group Therapy ( CBT):Patient was attentive and participatory in CBT programming this morning, and remained in good behavioral control. Patient expressed positive insights regarding relevant treatment interventions and goals.
[2017-04-22] MEDS: Vitamin THERAPEUTIC TAB PO SCH (12:44)
[2017-04-23] MEDS: Vitamin THERAPEUTIC TAB PO SCH (07:58)
[2017-04-23 08:11] VITALS: BP 132/82
--- NOTE | 2017-04-23 11:04 | DS ---
Discharge Planning - Discharge Planning Discharge Planning: Prescriptions provided for discharge [] Yes [] No Follow up care details as per social work arrangements. Patient response to discharge plan: [] eager for discharge [] agreeable with discharge plan [] ambivalent about discharge [] disagrees with discharge today
== END 2017-04-23 09:45 | disposition home or self-care (01) | DRG 760 ==
LOC: ED 14:16 → BSU 22:57
PROVIDERS: ADMIT Psychiatry & Neurology Psychiatry; ATTEND Psychiatry & Neurology Psychiatry
DX: F22 Delusional disorders (principal); F23 Brief psychotic disorder
CPT/HCPCS: 36415; 70450; 80053; 80061; 80307; 80320; 80329; 81003; 81015; 83036; 84443; 85025; 87086; 90853; 99222; 99231; 99232; 99238; 99283; A9270-GY; G0480

== ENCOUNTER 2017-05-05 20:05 | Emergency (ER) | payer MEDICAID ==
[2017-05-05 21:25] LABS: ABS Basophils 0.1 10^3/ul (0-0.2); ABS Eosinophils 0.1 10^3/ul (0-0.6); ABS Lymphocytes 2.4 10^3/ul (1.0-4.8); ABS Monocytes 0.7 10^3/ul (0-0.8); ABS Neutrophils 3.7 10^3/ul (1.5-7.7); ABS Nucleated RBC 0 10^3/ul; Eosinophil % 1.2 % (0-6); Hematocrit 39 % (35-47); Hemoglobin 13.3 g/dl (12.0-16.0); Mean Corpuscular HGB Conc 34 g/dl (31-36); Mean Corpuscular Hemoglobin 29 pg (27-31); Mean Corpuscular Volume 86 fL (80-97); Mean Platelet Volume 8 um3 (7.4-10.4); Nucleated Red Blood Cells % 0.1; Platelet Count 258 10^3/ul (150-450); Red Blood Count 4.53 10^6/ul (4.0-5.4); Red Cell Distribution Width 14 % (10.5-15); White Blood Count 6.9 10^3/ul (3.5-10.8)
[2017-05-05 21:41] LABS: EGFR Non-African American 80.9 (>60)
[2017-05-05 22:35] LABS: Urine Appearance Clear; Urine Blood 1+ (Negative); Urine Color Yellow; Urine Ketones 1+ (Negative); Urine Protein Negative (Negative); Urine Specific Gravity 1.011 (1.010-1.030); Urine Urobilinogen Negative (Negative)
[2017-05-06] MEDS ORDERED: LORazepam TAB(*) 1 MG PO ONE (11:10)
[2017-05-06] MEDS ORDERED: LORazepam TAB(*) 1 MG ONE (11:11)
--- NOTE | 2017-05-06 12:40 | PN ---
ED Flex Patient Progress Note Date of Service: 05/06/17 Subjective: This is a 57 year-old F who is pending discharge to home secondary to paranoia Pt offers no complaints at this time. She ate some of her lunch. Objective: Vitals: Most recent vital signs documented below. General NAD, Alert and oriented x3. Heart: rrr at 70 bpm Lungs: CTA or with rales, rhonchi, wheezing abd: soft nontender Laboratory: Current laboratory results documented below. Assessment: paranoia Plan: Pending to discharge home. disposition: home condition: Stable Vital Signs Temp Pulse Resp BP Pulse Ox 97.9 F 82 16 122/75 99 05/06/17 02:30 05/06/17 02:30 05/06/17 02:30 05/06/17 02:30 05/06/17 02:30 Lab Results - Entire Visit 05/05/17 05/05/17 05/05/17 22:15 22:15 21:12 WBC 6.9 RBC 4.53 Hgb 13.3 Hct 39 MCV 86 MCH 29 MCHC 34 RDW 14 Plt Count 258 MPV 8 Neut % (Auto) 53.8 Lymph % (Auto) 34.0 [place] % (Auto) 10.2 H Eos % (Auto) 1.2 Baso % (Auto) 0.8 Absolute Neuts (auto) 3.7 Absolute Lymphs (auto) 2.4 Absolute Monos (auto) 0.7 Absolute Eos (auto) 0.1 Absolute Basos (auto) 0.1 Absolute Nucleated RBC 0 Nucleated RBC % 0.1 Sodium Potassium Chloride Carbon Dioxide Anion Gap BUN Creatinine Est GFR ( Amer) Est GFR (Non-Af Amer) BUN/Creatinine Ratio Glucose Calcium Total Bilirubin AST ALT Alkaline Phosphatase Total Protein Albumin Globulin Albumin/Globulin Ratio TSH Urine Color Yellow Urine Appearance Clear Urine pH 6.0 Ur Specific [place] 1.011 Urine Protein Negative Urine Ketones 1+ A Urine Blood 1+ A Urine Nitrate Negative Urine Bilirubin Negative Urine Urobilinogen Negative Ur Leukocyte Esterase Negative Urine WBC (Auto) Trace(0-5/hpf) Urine RBC (Auto) Trace(0-2/hpf) Urine Bacteria Absent Urine Glucose Negative Salicylates Urine Opiates Screen None detected Acetaminophen Ur Barbiturates Screen None detected Ur Phencyclidine Scrn None detected Ur Amphetamines Screen None detected U Benzodiazepines Scrn None detected Urine Cocaine Screen None detected U Cannabinoids Screen None detected Serum Alcohol 05/05/17 21:12 WBC RBC Hgb Hct MCV MCH MCHC RDW Plt Count MPV Neut % (Auto) Lymph % (Auto) [place] % (Auto) Eos % (Auto) Baso % (Auto) Absolute Neuts (auto) Absolute Lymphs (auto) Absolute Monos (auto) Absolute Eos (auto) Absolute Basos (auto) Absolute Nucleated RBC Nucleated RBC % Sodium 138 Potassium 3.6 Chloride 104 Carbon Dioxide 28 Anion Gap 6 BUN 16 Creatinine 0.74 Est GFR ( Amer) 104.0 Est GFR (Non-Af Amer) 80.9 BUN/Creatinine Ratio 21.6 H Glucose 92 Calcium 9.2 Total Bilirubin 0.40 AST 18 ALT 14 Alkaline Phosphatase 52 Total Protein 7.1 Albumin 4.2 Globulin 2.9 Albumin/Globulin Ratio 1.4 TSH 3.68 Urine Color Urine Appearance Urine pH Ur Specific [place] Urine Protein Urine Ketones Urine Blood Urine Nitrate Urine Bilirubin Urine Urobilinogen Ur Leukocyte Esterase Urine WBC (Auto) Urine RBC (Auto) Urine Bacteria Urine Glucose Salicylates < 2.50 Urine Opiates Screen Acetaminophen < 15 Ur Barbiturates Screen Ur Phencyclidine Scrn Ur Amphetamines Screen U Benzodiazepines Scrn Urine Cocaine Screen U Cannabinoids Screen Serum Alcohol < 10
[2017-05-06 13:35] VITALS: BP 131/87
--- NOTE | 2017-05-06 13:58 | ED ---
Bob Prasad Angela, scribed for Chalo Grace MD on 05/06/17 at 1248 . Progress - Progress Note Progress Note: This pt was signed out by Dr. Holliday, pending disposition, awaiting MHE. Pt was evaluated by the mental health impregnator and Dr. Schrader. Dr. Schrader recommends for the pt to be discharged back [facility]. Pt will be discharged to home, in stable condition, with a diagnosis of paranoia. Condition: Stable Disposition: Home Course/Dx - Diagnoses Provider Diagnoses: Paranoia The documentation as recorded by the Bob balbuena Angela accurately reflects the service I personally performed and the decisions made by Sanjay jaimes Walter, MD.
--- NOTE | 2017-05-09 19:14 | ED ---
Chao Prasad Abhishek, scribed for Adamaris Holliday MD on 05/06/17 at 0036 . Psychiatric Complaint - HPI Summary HPI Summary: The pt is a 57 y/o female that is presenting to the [facility] with a chief complaint of neck pain. The pt is currently residing in a homeless nursing home and states that there is something in the air." She also states that after an hour upon arriving at the nursing home, she stated, her brain didnt feel right." Pt also reports of anxiety. Pt was previously admitted to the [facility] last week according to the pt and the physician prescribed the pt a tranquilizer but the pt was not compliant. - History Of Current Complaint Chief Complaint: EDMentalHealth Time Seen by Provider: 05/05/17 21:41 Hx Obtained From: Patient Hx Last Menstrual Period: menopausal Timing: Constant Character: Anxious - Allergies/Home Medications Allergies/Adverse Reactions: Allergies Allergy/AdvReac Type Severity Reaction Status Date / Time acetaminophen AdvReac See Comment Verified 05/05/17 21:17 Home Medications: Home Medications Fluocinonide 0.05% CM (NF) [Lidex 0.05% CREAM (NF)] 1 applic TOPICAL BID PRN MDD BID 05/05/17 [History Confirmed 05/05/17] PMH/Surg Hx/FS Hx/Imm Hx Endocrine/Hematology History: Denies: Hx Anticoagulant Therapy, Hx Diabetes, Hx Thyroid Disease Cardiovascular History: Reports: Hx Hypertension - pre Denies: Hx Congestive Heart Failure, Hx Deep Vein Thrombosis, Hx Myocardial Infarction, Hx Pacemaker/ICD Respiratory History: Denies: Hx Asthma, Hx Chronic Obstructive Pulmonary Disease (COPD), Hx Lung Cancer, Hx Pneumonia, Hx Pulmonary Embolism GI History: Denies: Hx Gall Bladder Disease, Hx Gastrointestinal Bleed, Hx Ulcer, Hx Urosepsis History: Denies: Hx Kidney Stones, Hx Renal Disease Sensory History: Denies: Hx Contacts or Glasses, Hx Hearing Aid Opthamlomology History: Denies: Hx Contacts or Glasses Neurological History: Denies: Hx Dementia, Hx Migraine, Hx Seizures, Hx Transient Ischemic Attacks (TIA) Psychiatric History: Denies: Hx Anxiety, Hx Eating Disorder, Hx Depression, Hx Schizophrenia, Hx Bipolar Disorder, Hx of Violent Episodes Against Others - Surgical History Surgery Procedure, Year, and Place: Appendectomy, C Section x 2 - Immunization History Date of Tetanus Vaccine: 2011? Date of Influenza Vaccine: none Infectious Disease History: No Infectious Disease History: Denies: Hx Hepatitis, Hx Human Immunodeficiency Virus (HIV), History Other Infectious Disease, Traveled Outside the [place] in Last 30 Days - Family History Known Family History: Positive: Cardiac Disease - brother -- [place] before age of 50. , Diabetes Negative: Hypertension - Social History Alcohol Use: Weekly Alcohol Amount: 2-3 drinks a week Hx Substance Use: No Substance Use Type: Reports: None Hx Tobacco Use: Yes Smoking Status (MU): Light Every Day Tobacco Smoker Type: Cigarettes Amount Used/How Often: variable Length of Time of Smoking/Using Tobacco: social, very rarely Have You Smoked in the Last Year: Yes Review of Systems Constitutional: Negative Eyes: Negative ENT: Negative Cardiovascular: Negative Respiratory: Negative Gastrointestinal: Negative Genitourinary: Negative Musculoskeletal: Other - neck pain Skin: Negative Neurological: Other - "brain does not feel right" Positive: Anxious All Other Systems Reviewed And Are Negative: Yes Physical Exam - Summary Physical Exam Summary: VITAL SIGNS: Reviewed. GENERAL: ~Patient is a well-developed and nourished (FEMALE) who is lying comfortable in the stretcher. Patient is not in any acute respiratory distress. Pt is Delusional HEAD AND FACE: No signs of trauma. No ecchymosis, hematomas or skull depressions. No sinus tenderness. EYES: PERRLA, EOMI x 2, No injected conjunctiva, no nystagmus. EARS: Hearing grossly intact. Ear canals and tympanic membranes are within normal limits. MOUTH: Oropharynx within normal limits. NECK: Supple, trachea is midline, no adenopathy, no JVD, no carotid bruit, no c- spine tenderness, neck with full ROM. CHEST: Symmetric, n SKIN: Dry and warm o tenderness at palpation LUNGS: Clear to auscultation bilaterally. No wheezing or crackles. CVS: Regular rate and rhythm, S1 and S2 present, no murmurs or gallops appreciated. ABDOMEN: Soft, non-tender. No signs of distention. No rebound no guarding, and no masses palpated. Bowel sounds are normal. EXTREMITIES: FROM in all major joints, no edema, no cyanosis or clubbing. NEURO: Alert and oriented x 3. No acute neurological deficits. Speech is normal and follows commands. Triage Information Reviewed: Yes Vital Signs On Initial Exam: Initial Vitals Temp Pulse Resp BP Pulse Ox 98.4 F 76 16 145/100 99 05/05/17 20:41 05/05/17 20:41 05/05/17 20:41 05/05/17 20:41 05/05/17 20:41 Vital Signs Reviewed: Yes Diagnostics - Vital Signs Vital Signs Temp Pulse Resp BP Pulse Ox 05/05/17 20:41 98.4 F 76 16 145/100 99 - Laboratory Lab Results: Lab Results 05/05/17 05/05/17 05/05/17 Range/Units 21:12 21:12 22:15 WBC 6.9 (3.5-10.8) 10^3/ul RBC 4.53 (4.0-5.4) 10^6/ul Hgb 13.3 (12.0-16.0) g/dl Hct 39 (35-47) % MCV 86 (80-97) fL MCH 29 (27-31) pg MCHC 34 (31-36) g/dl RDW 14 (10.5-15) % Plt Count 258 (150-450) 10^3/ul MPV 8 (7.4-10.4) um3 Neut % (Auto) 53.8 (38-83) % Lymph % (Auto) 34.0 (25-47) % [place] % (Auto) 10.2 H (0-7) % Eos % (Auto) 1.2 (0-6) % Baso % (Auto) 0.8 (0-2) % Absolute Neuts (auto) 3.7 (1.5-7.7) 10^3/ul Absolute Lymphs (auto) 2.4 (1.0-4.8) 10^3/ul Absolute Monos (auto) 0.7 (0-0.8) 10^3/ul Absolute Eos (auto) 0.1 (0-0.6) 10^3/ul Absolute Basos (auto) 0.1 (0-0.2) 10^3/ul Absolute Nucleated RBC 0 10^3/ul Nucleated RBC % 0.1 Sodium 138 (133-145) mmol/L Potassium 3.6 (3.5-5.0) mmol/L Chloride 104 (101-111) mmol/L Carbon Dioxide 28 (22-32) mmol/L Anion Gap 6 (2-11) mmol/L BUN 16 (6-24) mg/dL Creatinine 0.74 (0.51-0.95) mg/dL Est GFR ( Amer) 104.0 (>60) Est GFR (Non-Af Amer) 80.9 (>60) BUN/Creatinine Ratio 21.6 H (8-20) Glucose 92 (70-100) mg/dL Calcium 9.2 (8.6-10.3) mg/dL Total Bilirubin 0.40 (0.2-1.0) mg/dL AST 18 (13-39) U/L ALT 14 (7-52) U/L Alkaline Phosphatase 52 (34-104) U/L Total Protein 7.1 (6.4-8.9) g/dL Albumin 4.2 (3.2-5.2) g/dL Globulin 2.9 (2-4) g/dL Albumin/Globulin Ratio 1.4 (1-3) TSH 3.68 (0.34-5.60) mcIU/mL Urine Color Urine Appearance Urine pH (5-9) Ur Specific [place] (1.010-1.030) Urine Protein (Negative) Urine Ketones (Negative) Urine Blood (Negative) Urine Nitrate (Negative) Urine Bilirubin (Negative) Urine Urobilinogen (Negative) Ur Leukocyte Esterase (Negative) Urine WBC (Auto) (Absent) Urine RBC (Auto) (Absent) Urine Bacteria (Absent) Urine Glucose (Negative) Salicylates < 2.50 (<30) mg/dL Urine Opiates Screen None detected (None Detect) Acetaminophen < 15 mcg/mL Ur Barbiturates Screen None detected (None Detect) Ur Phencyclidine Scrn None detected (None Detect) Ur Amphetamines Screen None detected (None Detect) U Benzodiazepines Scrn None detected (None Detect) Urine Cocaine Screen None detected (None Detect) U Cannabinoids Screen None detected (None Detect) Serum Alcohol < 10 (<10) mg/dL 05/05/17 Range/Units 22:15 WBC (3.5-10.8) 10^3/ul RBC (4.0-5.4) 10^6/ul Hgb (12.0-16.0) g/dl Hct (35-47) % MCV (80-97) fL MCH (27-31) pg MCHC (31-36) g/dl RDW (10.5-15) % Plt Count (150-450) 10^3/ul MPV (7.4-10.4) um3 Neut % (Auto) (38-83) % Lymph % (Auto) (25-47) % [place] % (Auto) (0-7) % Eos % (Auto) (0-6) % Baso % (Auto) (0-2) % Absolute Neuts (auto) (1.5-7.7) 10^3/ul Absolute Lymphs (auto) (1.0-4.8) 10^3/ul Absolute Monos (auto) (0-0.8) 10^3/ul Absolute Eos (auto) (0-0.6) 10^3/ul Absolute Basos (auto) (0-0.2) 10^3/ul Absolute Nucleated RBC 10^3/ul Nucleated RBC % Sodium (133-145) mmol/L Potassium (3.5-5.0) mmol/L Chloride (101-111) mmol/L Carbon Dioxide (22-32) mmol/L Anion Gap (2-11) mmol/L BUN (6-24) mg/dL Creatinine (0.51-0.95) mg/dL Est GFR ( Amer) (>60) Est GFR (Non-Af Amer) (>60) BUN/Creatinine Ratio (8-20) Glucose (70-100) mg/dL Calcium (8.6-10.3) mg/dL Total Bilirubin (0.2-1.0) mg/dL AST (13-39) U/L ALT (7-52) U/L Alkaline Phosphatase (34-104) U/L Total Protein (6.4-8.9) g/dL Albumin (3.2-5.2) g/dL Globulin (2-4) g/dL Albumin/Globulin Ratio (1-3) TSH (0.34-5.60) mcIU/mL Urine Color Yellow Urine Appearance Clear Urine pH 6.0 (5-9) Ur Specific [place] 1.011 (1.010-1.030) Urine Protein Negative (Negative) Urine Ketones 1+ A (Negative) Urine Blood 1+ A (Negative) Urine Nitrate Negative (Negative) Urine Bilirubin Negative (Negative) Urine Urobilinogen Negative (Negative) Ur Leukocyte Esterase Negative (Negative) Urine WBC (Auto) Trace(0-5/hpf) (Absent) Urine RBC (Auto) Trace(0-2/hpf) (Absent) Urine Bacteria Absent (Absent) Urine Glucose Negative (Negative) Salicylates (<30) mg/dL Urine Opiates Screen (None Detect) Acetaminophen mcg/mL Ur Barbiturates Screen (None Detect) Ur Phencyclidine Scrn (None Detect) Ur Amphetamines Screen (None Detect) U Benzodiazepines Scrn (None Detect) Urine Cocaine Screen (None Detect) U Cannabinoids Screen (None Detect) Serum Alcohol (<10) mg/dL Result Diagrams: 05/05/17 21:12 05/05/17 21:12 Lab Statement: Any lab studies that have been ordered have been reviewed, and results considered in the medical decision making process. Course/Dx - Course Course Of Treatment: The pt is a 57 y/o female with chief complaint of a neck pain. Pt also stated that her "brain does not feel right." Pt lives in a homeless nursing home and is stated to have been admitted to a [facility] last week. According to the pt, she was also noncompliant to the medication she received from the physician. The pt was cleared for a MHE. The pt will be signed out to Dr. Grace, awaiting MHE. The dx will be paranoia - Differential Dx/Clinical Impression Provider Diagnosis: Paranoia Discharge - Discharge Plan Condition: Stable Disposition: OTHER Discharge Disposition Comment: Signed out to Dr. Grace, awating MHE Referrals: No Primary Care Phys,NOPCP [Primary Care Provider] - The documentation as recorded by the Chao balbuena Abhishek accurately reflects the service I personally performed and the decisions made by me, Adamaris Holliday MD.
== END 2017-05-06 12:57 ==
LOC: ED 20:05
DX: F22 Delusional disorders (principal); M54.2 Cervicalgia; F17.210 Nicotine dependence, cigarettes, uncomplicated
CPT/HCPCS: 36415; 80053; 80307; 80320; 80329; 81003; 81015; 84443; 85025; 87086; 99284; A9270-GY; G0480

== ENCOUNTER 2017-08-04 22:38 | Inpatient (IN) | payer OTHER ==
[2017-08-04 23:29] LABS: ABS Basophils 0.1 10^3/ul (0-0.2); ABS Eosinophils 0.1 10^3/ul (0-0.6); ABS Lymphocytes 1.9 10^3/ul (1.0-4.8); ABS Monocytes 0.7 10^3/ul (0-0.8); ABS Neutrophils 4.7 10^3/ul (1.5-7.7); ABS Nucleated RBC 0 10^3/ul; Eosinophil % 1.2 % (0-6); Hematocrit 38 % (35-47); Hemoglobin 12.9 g/dl (12.0-16.0); Lymphocyte % 25.6 % (25-47); Mean Corpuscular HGB Conc 34 g/dl (31-36); Mean Corpuscular Hemoglobin 29 pg (27-31); Mean Corpuscular Volume 85 fL (80-97); Mean Platelet Volume 8.4 um3 (7.4-10.4); Nucleated Red Blood Cells % 0.1; Platelet Count 245 10^3/ul (150-450); Red Cell Distribution Width 13 % (10.5-15); White Blood Count 7.4 10^3/ul (3.5-10.8)
[2017-08-04 23:41] LABS: EGFR Non-African American 64.5 (>60)
[2017-08-04] MEDS ORDERED: Potassium Chlor TAB* 20 MEQ TAB.ER PO ONE (23:47)
[2017-08-05 02:15] LABS: Urine Appearance Cloudy; Urine Blood 2+ (Negative); Urine Color Yellow; Urine Ketones 1+ (Negative); Urine Protein Negative (Negative); Urine Specific Gravity 1.012 (1.010-1.030); Urine Urobilinogen Negative (Negative)
--- NOTE | 2017-08-05 06:58 | ED ---
Renee Prasad Elizabeth, scribed for Adamaris Holliday MD on 08/04/17 at 2301 . Psychiatric Complaint - HPI Summary HPI Summary: This patient is a 57 year old F BIBA to [facility] with a chief complaint of hearing and seeing things since earlier today. The patient is homeless and does not take any medications. Patient reports contamination of bites on her skin. The patient says that no one is giving me answers. The patient reports a speck in her eye, a dot that seems to move digitally and seems to take pictures. The patient gestured to her left shoulder and said this was embedded under my arm. The patient also notes mysteriously-appearing spots on her belly and seeing strange things on the television, such as her family members names being said and displayed on the screen. - History Of Current Complaint Chief Complaint: EDMentalHealth Time Seen by Provider: 08/04/17 22:41 Hx Obtained From: Patient Hx Last Menstrual Period: menopausal Onset/Duration: Lasting Days, Still Present Timing: Constant Severity Initially: Mild Severity Currently: Mild Aggravating Factor(s): Nothing Alleviating Factor(s): Nothing Associated Signs And Symptoms: Positive: Hallucinating, Paranoid Behavior - Allergies/Home Medications Allergies/Adverse Reactions: Allergies Allergy/AdvReac Type Severity Reaction Status Date / Time acetaminophen AdvReac See Comment Verified 05/05/17 21:17 PMH/Surg Hx/FS Hx/Imm Hx Endocrine/Hematology History: Denies: Hx Anticoagulant Therapy, Hx Diabetes, Hx Thyroid Disease Cardiovascular History: Reports: Hx Hypertension - pre Denies: Hx Congestive Heart Failure, Hx Deep Vein Thrombosis, Hx Myocardial Infarction, Hx Pacemaker/ICD Respiratory History: Denies: Hx Asthma, Hx Chronic Obstructive Pulmonary Disease (COPD), Hx Lung Cancer, Hx Pneumonia, Hx Pulmonary Embolism GI History: Denies: Hx Gall Bladder Disease, Hx Gastrointestinal Bleed, Hx Ulcer, Hx Urosepsis History: Denies: Hx Kidney Stones, Hx Renal Disease Sensory History: Denies: Hx Contacts or Glasses, Hx Hearing Aid Opthamlomology History: Denies: Hx Contacts or Glasses Neurological History: Denies: Hx Dementia, Hx Migraine, Hx Seizures, Hx Transient Ischemic Attacks (TIA) Psychiatric History: Denies: Hx Anxiety, Hx Eating Disorder, Hx Depression, Hx Schizophrenia, Hx Bipolar Disorder, Hx of Violent Episodes Against Others - Surgical History Surgery Procedure, Year, and Place: Appendectomy, C Section x 2 - Immunization History Date of Tetanus Vaccine: unk Date of Influenza Vaccine: unk Infectious Disease History: No Infectious Disease History: Denies: Hx Hepatitis, Hx Human Immunodeficiency Virus (HIV), History Other Infectious Disease, Traveled Outside the [place] in Last 30 Days - Family History Known Family History: Positive: Cardiac Disease - brother -- [place] before age of 50. , Diabetes Negative: Hypertension - Social History Alcohol Use: Weekly Alcohol Amount: 2-3 drinks a week Hx Substance Use: No Substance Use Type: Reports: None Hx Tobacco Use: Yes Smoking Status (MU): Light Every Day Tobacco Smoker Type: Cigarettes Amount Used/How Often: variable Length of Time of Smoking/Using Tobacco: social, very rarely Have You Smoked in the Last Year: Yes Review of Systems Negative: Fever Negative: Epistaxis Negative: Shortness Of Breath Psychological: Other - hearing and seeing things All Other Systems Reviewed And Are Negative: Yes Physical Exam - Summary Physical Exam Summary: VITAL SIGNS: Reviewed. GENERAL: Patient is a well-developed and nourished FEMALE who is lying comfortable in the stretcher. Patient is not in any acute respiratory distress. HEAD AND FACE: No signs of trauma. No ecchymosis, hematomas or skull depressions. No sinus tenderness. EYES: PERRLA, EOMI x 2, No injected conjunctiva, no nystagmus. EARS: Hearing grossly intact. Ear canals and tympanic membranes are within normal limits. MOUTH: Oropharynx within normal limits. NECK: Supple, trachea is midline, no adenopathy, no JVD, no carotid bruit, no c- spine tenderness, neck with full ROM. CHEST: Symmetric, no tenderness at palpation LUNGS: Clear to auscultation bilaterally. No wheezing or crackles. CVS: Regular rate and rhythm, S1 and S2 present, no murmurs or gallops appreciated. ABDOMEN: Soft, non-tender. No signs of distention. No rebound no guarding, and no masses palpated. Bowel sounds are normal. EXTREMITIES: FROM in all major joints, no edema, no cyanosis or clubbing. NEURO: Alert and oriented x 3. No acute neurological deficits. Speech is normal and follows commands. SKIN: Dry and warm PSYCH: Seems paranoid, reluctant and disagreeable with every medical decision made, such as getting her blood drawn Triage Information Reviewed: Yes Vital Signs On Initial Exam: Initial Vitals Temp Pulse Resp BP Pulse Ox 98 F 70 16 160/95 98 08/04/17 22:40 08/04/17 22:40 08/04/17 22:40 08/04/17 22:40 08/04/17 22:40 Vital Signs Reviewed: Yes Diagnostics - Vital Signs Vital Signs Temp Pulse Resp BP Pulse Ox 08/04/17 22:40 98 F 70 16 160/95 98 - Laboratory Lab Results: Lab Results 08/04/17 08/04/17 08/05/17 Range/Units 23:14 23:14 02:04 WBC 7.4 (3.5-10.8) 10^3/ul RBC 4.50 (4.00-5.40) 10^6/ul Hgb 12.9 (12.0-16.0) g/dl Hct 38 (35-47) % MCV 85 (80-97) fL MCH 29 (27-31) pg MCHC 34 (31-36) g/dl RDW 13 (10.5-15) % Plt Count 245 (150-450) 10^3/ul MPV 8.4 (7.4-10.4) um3 Neut % (Auto) 63.0 (38-83) % Lymph % (Auto) 25.6 (25-47) % [place] % (Auto) 9.5 H (0-7) % Eos % (Auto) 1.2 (0-6) % Baso % (Auto) 0.7 (0-2) % Absolute Neuts (auto) 4.7 (1.5-7.7) 10^3/ul Absolute Lymphs (auto) 1.9 (1.0-4.8) 10^3/ul Absolute Monos (auto) 0.7 (0-0.8) 10^3/ul Absolute Eos (auto) 0.1 (0-0.6) 10^3/ul Absolute Basos (auto) 0.1 (0-0.2) 10^3/ul Absolute Nucleated RBC 0 10^3/ul Nucleated RBC % 0.1 Sodium 136 L (139-145) mmol/L Potassium 3.2 L (3.5-5.0) mmol/L Chloride 101 (101-111) mmol/L Carbon Dioxide 26 (22-32) mmol/L Anion Gap 9 (2-11) mmol/L BUN 15 (6-24) mg/dL Creatinine 0.90 (0.51-0.95) mg/dL Est GFR ( Amer) 83.0 (>60) Est GFR (Non-Af Amer) 64.5 (>60) BUN/Creatinine Ratio 16.7 (8-20) Glucose 93 (70-100) mg/dL Calcium 9.0 (8.6-10.3) mg/dL Total Bilirubin 0.60 (0.2-1.0) mg/dL AST 45 H (13-39) U/L ALT 20 (7-52) U/L Alkaline Phosphatase 81 (34-104) U/L Total Protein 6.7 (6.4-8.9) g/dL Albumin 3.8 (3.2-5.2) g/dL Globulin 2.9 (2-4) g/dL Albumin/Globulin Ratio 1.3 (1-3) TSH 2.30 (0.34-5.60) mcIU/mL Urine Color Yellow Urine Appearance Cloudy Urine pH 5.0 (5-9) Ur Specific [place] 1.012 (1.010-1.030) Urine Protein Negative (Negative) Urine Ketones 1+ A (Negative) Urine Blood 2+ A (Negative) Urine Nitrate Negative (Negative) Urine Bilirubin Negative (Negative) Urine Urobilinogen Negative (Negative) Ur Leukocyte Esterase 3+ A (Negative) Urine WBC (Auto) 3+(>20/hpf) A (Absent) Urine RBC (Auto) 1+(3-5/hpf) A (Absent) Urine Bacteria Absent (Absent) Hyaline Casts Present A (Absent) Urine Glucose Negative (Negative) Salicylates < 2.50 (<30) mg/dL Urine Opiates Screen (None Detect) Acetaminophen < 15 mcg/mL Ur Barbiturates Screen (None Detect) Ur Phencyclidine Scrn (None Detect) Ur Amphetamines Screen (None Detect) U Benzodiazepines Scrn (None Detect) Urine Cocaine Screen (None Detect) U Cannabinoids Screen (None Detect) Serum Alcohol < 10 (<10) mg/dL 08/05/17 Range/Units 02:04 WBC (3.5-10.8) 10^3/ul RBC (4.00-5.40) 10^6/ul Hgb (12.0-16.0) g/dl Hct (35-47) % MCV (80-97) fL MCH (27-31) pg MCHC (31-36) g/dl RDW (10.5-15) % Plt Count (150-450) 10^3/ul MPV (7.4-10.4) um3 Neut % (Auto) (38-83) % Lymph % (Auto) (25-47) % [place] % (Auto) (0-7) % Eos % (Auto) (0-6) % Baso % (Auto) (0-2) % Absolute Neuts (auto) (1.5-7.7) 10^3/ul Absolute Lymphs (auto) (1.0-4.8) 10^3/ul Absolute Monos (auto) (0-0.8) 10^3/ul Absolute Eos (auto) (0-0.6) 10^3/ul Absolute Basos (auto) (0-0.2) 10^3/ul Absolute Nucleated RBC 10^3/ul Nucleated RBC % Sodium (139-145) mmol/L Potassium (3.5-5.0) mmol/L Chloride (101-111) mmol/L Carbon Dioxide (22-32) mmol/L Anion Gap (2-11) mmol/L BUN (6-24) mg/dL Creatinine (0.51-0.95) mg/dL Est GFR ( Amer) (>60) Est GFR (Non-Af Amer) (>60) BUN/Creatinine Ratio (8-20) Glucose (70-100) mg/dL Calcium (8.6-10.3) mg/dL Total Bilirubin (0.2-1.0) mg/dL AST (13-39) U/L ALT (7-52) U/L Alkaline Phosphatase (34-104) U/L Total Protein (6.4-8.9) g/dL Albumin (3.2-5.2) g/dL Globulin (2-4) g/dL Albumin/Globulin Ratio (1-3) TSH (0.34-5.60) mcIU/mL Urine Color Urine Appearance Urine pH (5-9) Ur Specific [place] (1.010-1.030) Urine Protein (Negative) Urine Ketones (Negative) Urine Blood (Negative) Urine Nitrate (Negative) Urine Bilirubin (Negative) Urine Urobilinogen (Negative) Ur Leukocyte Esterase (Negative) Urine WBC (Auto) (Absent) Urine RBC (Auto) (Absent) Urine Bacteria (Absent) Hyaline Casts (Absent) Urine Glucose (Negative) Salicylates (<30) mg/dL Urine Opiates Screen None detected (None Detect) Acetaminophen mcg/mL Ur Barbiturates Screen None detected (None Detect) Ur Phencyclidine Scrn None detected (None Detect) Ur Amphetamines Screen None detected (None Detect) U Benzodiazepines Scrn None detected (None Detect) Urine Cocaine Screen None detected (None Detect) U Cannabinoids Screen None detected (None Detect) Serum Alcohol (<10) mg/dL Result Diagrams: 08/04/17 23:14 08/04/17 23:14 Lab Statement: Any lab studies that have been ordered have been reviewed, and results considered in the medical decision making process. Course/Dx - Course Course Of Treatment: Patient is 57 y/o F reporting hearing and seeing things since earlier today. The patient is paranoid, reluctant and disagrees with any medical decision. Test results with no significant abnormalities. In the ED course the patient was given potassium chlor. Results of the mental health evaluation performed by Dr. Martinez were relayed at 01:40 with dx of psychosis and recommendation that the patient be transferred to another psychiatric facility. Time: 0 700. Patient sign out to Dr. Carpenter at shift changes pending transfer to psychiatric facility. - Differential Dx/Clinical Impression Provider Diagnosis: Psychosis Discharge - Sign-Out/Discharge Documenting (check all that apply): Discharge/Admit/Transfer - Discharge Plan Condition: Stable Disposition: PSYCHIATRIC FACILITY-OTHER Referrals: Celina Ball MD [Primary Care Provider] - - Billing Disposition and Condition Condition: STABLE Disposition: Psychiatric Facility Other The documentation as recorded by the Renee balbuena Elizabeth accurately reflects the service I personally performed and the decisions made by me, Adamaris Holliday MD.
--- NOTE | 2017-08-05 10:11 | ED ---
Progress - Progress Note Progress Note: Ms. Huerta presented on a previous shift with paranoid delusions, was medically cleared and transferred to the Flex Unit where she underwent a MHE. - Consult/PCP Time Called: 22:40 Course/Dx - Course Course Of Treatment: Patient is 57 y/o F reporting hearing and seeing things since earlier today. The patient is paranoid, reluctant and disagrees with any medical decision. Test results with no significant abnormalities. In the ED course the patient was given potassium chlor. Results of the mental health evaluation performed by Dr. Martinez were relayed at 01:40 with dx of psychosis and recommendation that the patient be transferred to another psychiatric facility. 0930: The MHE came to me with the recommendation that Ms. Huerta be admitted to [facility] [place] on a 939 basis and I signed the paperwork given her paranoid delusional state. - Diagnoses Provider Diagnoses: Psychosis Discharge - Sign-Out/Discharge Documenting (check all that apply): Discharge/Admit/Transfer - Discharge Plan Condition: Stable Disposition: PSYCHIATRIC FACILITY-[facility] [place] Referrals: Celina Ball MD [Primary Care Provider] - - Billing Disposition and Condition Condition: STABLE Disposition: Psychiatric Facility [facility] [place]
--- NOTE | 2017-08-05 13:50 | PN ---
ED Flex Patient Progress Note Date of Service: 08/04/17 Subjective: This is a 57 year-old F who is pending admission to [facility] / transfer to another psychiatric facility / discharge to home / or being observed secondary to paranoia. Pt. examined around 1345. She has no complaints other than wanting to take a shower and see the counselor. Objective: Vitals: Most recent vital signs documented below. General NAD, Alert and oriented x3. Laboratory: Current laboratory results documented below. Assessment: Pending MHE Plan: Pending psychiatric or medical consultation to observe / transfer / admit / discharge will follow up daily . Vital Signs Temp Pulse Resp BP Pulse Ox 98.5 F 80 15 107/74 100 08/05/17 13:30 08/05/17 13:30 08/05/17 13:30 08/05/17 13:30 08/05/17 13:30 Lab Results - Entire Visit 08/05/17 08/05/17 08/04/17 02:04 02:04 23:14 WBC RBC Hgb Hct MCV MCH MCHC RDW Plt Count MPV Neut % (Auto) Lymph % (Auto) [place] % (Auto) Eos % (Auto) Baso % (Auto) Absolute Neuts (auto) Absolute Lymphs (auto) Absolute Monos (auto) Absolute Eos (auto) Absolute Basos (auto) Absolute Nucleated RBC Nucleated RBC % Sodium 136 L Potassium 3.2 L Chloride 101 Carbon Dioxide 26 Anion Gap 9 BUN 15 Creatinine 0.90 Est GFR ( Amer) 83.0 Est GFR (Non-Af Amer) 64.5 BUN/Creatinine Ratio 16.7 Glucose 93 Calcium 9.0 Total Bilirubin 0.60 AST 45 H ALT 20 Alkaline Phosphatase 81 Total Protein 6.7 Albumin 3.8 Globulin 2.9 Albumin/Globulin Ratio 1.3 TSH 2.30 Urine Color Yellow Urine Appearance Cloudy Urine pH 5.0 Ur Specific [place] 1.012 Urine Protein Negative Urine Ketones 1+ A Urine Blood 2+ A Urine Nitrate Negative Urine Bilirubin Negative Urine Urobilinogen Negative Ur Leukocyte Esterase 3+ A Urine WBC (Auto) 3+(>20/hpf) A Urine RBC (Auto) 1+(3-5/hpf) A Urine Bacteria Absent Hyaline Casts Present A Urine Glucose Negative Salicylates < 2.50 Urine Opiates Screen None detected Acetaminophen < 15 Ur Barbiturates Screen None detected Ur Phencyclidine Scrn None detected Ur Amphetamines Screen None detected U Benzodiazepines Scrn None detected Urine Cocaine Screen None detected U Cannabinoids Screen None detected Serum Alcohol < 10 08/04/17 23:14 WBC 7.4 RBC 4.50 Hgb 12.9 Hct 38 MCV 85 MCH 29 MCHC 34 RDW 13 Plt Count 245 MPV 8.4 Neut % (Auto) 63.0 Lymph % (Auto) 25.6 [place] % (Auto) 9.5 H Eos % (Auto) 1.2 Baso % (Auto) 0.7 Absolute Neuts (auto) 4.7 Absolute Lymphs (auto) 1.9 Absolute Monos (auto) 0.7 Absolute Eos (auto) 0.1 Absolute Basos (auto) 0.1 Absolute Nucleated RBC 0 Nucleated RBC % 0.1 Sodium Potassium Chloride Carbon Dioxide Anion Gap BUN Creatinine Est GFR ( Amer) Est GFR (Non-Af Amer) BUN/Creatinine Ratio Glucose Calcium Total Bilirubin AST ALT Alkaline Phosphatase Total Protein Albumin Globulin Albumin/Globulin Ratio TSH Urine Color Urine Appearance Urine pH Ur Specific [place] Urine Protein Urine Ketones Urine Blood Urine Nitrate Urine Bilirubin Urine Urobilinogen Ur Leukocyte Esterase Urine WBC (Auto) Urine RBC (Auto) Urine Bacteria Hyaline Casts Urine Glucose Salicylates Urine Opiates Screen Acetaminophen Ur Barbiturates Screen Ur Phencyclidine Scrn Ur Amphetamines Screen U Benzodiazepines Scrn Urine Cocaine Screen U Cannabinoids Screen Serum Alcohol
[2017-08-05] MEDS ORDERED: Al Hydrox/Mg Hydrox/Simet LIQ* 30 ML UDC PO PRN (15:59)
[2017-08-06] MEDS: Vitamin THERAPEUTIC TAB PO SCH (09:33)
--- NOTE | 2017-08-06 12:37 | HP ---
H&P (Free Text) History and Physical: Psychiatric Attending History and Physical NAME: Tiffanie Huerta : 1960 AGE: 57 PROVIDER: Bruce Schrader DO DATE OF ADMISSION: 08/05/2017 JUSTIFICATION FOR ADMISSION: Patient is unable to care for herself in the community. She has bizarre, somatic and persecutory delusions which are causing severe psychological distress, hypervigilance and insomnia. She has grossly impaired insight and judgment which increases risk that she could place herself in harms way. Based on grave disability patient meets criteria for inpatient psychiatric admission for safety, assessment, stabalization and treatment of her mental disorder. CHIEF COMPLAINT: upon presentation to the emergency room patient stated: "...alot of weird things have been happening to me...I feel like i'm in the twilight zone...I am not sleeping and there are bug bites all over my body.....no one is giving me answers....There is a dot in my eye that seems to move digitally and seems to take pictures....something has been embedded under my arm...." HISTORY OF THE PRESENT ILLNESS: Patient is a 57 yo woman of [place] descent \\who is well known to this provider. this is patient's second [facility] psychiatric admission. patient was admitted here 3 months ago when she presented with persecutory and paranoid delusons. 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 has been unable to work since 2016. Has been homeless past year. patient refuses any and all medication. she has severely impaired insight. Patient has been living in [facility] group home housing. However, her paranoid delusions have resulted in [facility] terminating patient from receiving any services due to patient continual complaints about filthy conditions, insect infestations, and various other conditions which she believes are proof that persons are intentionally trying to harm, poison, harrass, communicate with her. she sees signs of malintent in peoples expressions. patient had nowhere to live and therefore she went to police department and asked to be taken to the ospital. 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 It appears that she began experiencing ideas of reference at work about 5 years ago which have progressed to paranoid ideation, delusions that she is being harrassed or "played with". Patient has been living in a group home in [place] since returning from [place]. She has been out of work since May 2015. She has applied for jobs but has not been able to secure a new position. Patient has been living at the [facility] through [facility]. Patient called an ambulance as she was concerned about multiple bites on her arms and chest which she believed were bug bites. She has been increasingly preoccupied with what she believes are messages from the TV which she refers to as "words which are being spliced into the conversation of people acting on the TV". she believes that she has a gift of being able to decipher these messages. Some of the messages have been derogatory comments such as "Bitch" or "Whore" which she believes may be directed at her by unknown person or persons. Other messages are coming from drug dealers announcing that a drug deal is going to take place. Patient feels compelled to share these messaages she is receving with legal authorities. She went to [facility] in recent past and also called in a report by phone. She is frustrated as she doesn't believe she was taken seriously. Apparently she called the police again yesterday and when they arrived she was disorganized and delusional, claiming that she was a lab rat for [facility] and that she is being monitored by the government through a microchip which has been implanted in her upper arm. She also told police that [place] had changed since she was last here because the mountains have been moved. Patient reported in ER that she was "mentally distressed" and "not mentally safe" because she had been "contaminated over and over". Denies history of head trauma,epilepsy, psychiatric illness, or drug abuse. PAST PSYCHIATRIC HISTORY: Patient denies history of psychiaric illness, treatment or hospitalization denies history of diagnosed psychosis, mood disorder, neurological disorder SUBSTANCE ABUSE HISTORY: Reports drinking alcohol three times daily smokes 2 to 3 cigarettes daily PAST MEDICAL HISTORY: denies history of Csection X2 history of appendectomy CURRENT MEDICATIONS: none FAMILY PSYCHIATRIC HISTORY: reports that no one that she knows has been diagnosed with psychiatric disorder in her family but she believes that her brothers both suffer from depression FAMILY/PSYCHOSOCIAL HISTORY: Born in the [place] to [place] parents. graduated high school in [place]. 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 Subsequently, she got to an [place] with who she had two children and moved with family to [place] where she raised her children. 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 Patient reports it was on this job that she began to have belief that "bizarre stuff is going on". She relates that she was accused of taking pictures of other employees. but maintains that the opposite was true. That is, she believes employees at that job were taking photographs of her secretly. Patient reports that after leaving this position she worked at [place] [employer] where she worked for two years. She related that she saw alot of suspicious behaviors there as well which she believes were covert and bizqarre. She believes employers were trying to communicate something to her through bizarre behaviors of the employees although she is unable to say exactly what the content of those communications were. Patient last worked at [employer] as a sales representatives in 2016. She was very suspicious of things said to her by other employees, believing that there was hidden meaning in the choice of words. She was perplexed but believed that people may have been conspiring against her. Patient reports that she has two sons. Jose Alberto aged 21 works two jobs and lives in [place]. 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 patient reprots she has friends but feels very bad athat she doesn't have money. She identifies lack of money as her main stressor. family lives in [place]. She has 1 brother . two brothers and one sister live in the [place]. She denies legal probelms or history of incarceration. She also denies history of physical or sexual Trauma. REVIEW OF SYSTEMS: 14 point review of systems non contributory PHYSICAL EXAMINATION: Skin: warm, dry, reflects adequate perfusion, no exanthem Head: atraumatic Neck: supple, non-tender, no cervical or submandibular adenopathy, no bruits Eyes: EOMI, BRICE, conjunctiva without injection ENT: no nasal discharge, TM's w/o injection, pharynx without exudate or injection, no tonsillar hypertrophy, mucous membranes moist. no evidence of oral lesions Respiratory: CTA bilaterally without expiratory wheezing, no rhonchi, no retractions visible Cardiovascular: RRR normal s1 and s2. radial, brachoradialis, dorsalis pedis pulses symmetic 5+/5 bilaterally Abdomen: soft non tender, normoactive bowel sound present in all quadrants, no HSM, no palpable masses Musculoskeletal: full range of motions in all extremities, no evidence of spinal curvature Lymph: no axillary lypmphadenopathy Neuro: CN 2 to 12 intact, no sensory deficits, motor 5+/5 in upper and lower extremites, bilaterally symmetric no cerebellar signs, normal gait, no tremor MENTAL STATUS EXAMINATION: well developed and nourished 57 year old woman who has a thin frame. Patient appears mildly disheveled. Her hygiene would best be described as fair. she was fairly well related. speech does appear mildly pressured and mildly hyperverbal. normal volume and rhythm. she speaks kinyarwanda perfectly and is articulate with good vocabulary. patient reports mood as irritable. she denies dysphoria, amotivation, anergia, anhedonia. she admits to feeling hopeless, and a loss of interest because she cant secure a job and has no money with which to go out with . she denies past history or current suicidal ideation. she denies HI. she further denies AH,VH. Thought process: patient is mostly goal directed and organized. she is not tangential, does not exhibit thought blocking. she denies racing thoughts. Her responses are relevant. Thought content reveals that patient has been grappling for many years with referential thinking , paranoid and bizarre delusions which range from the belief that she is being used as a lab rat by [facility] [employer] to believing that innocent remarks or getstures made by coworkers have a sublimal or hidden meaning which signifies that someone is trying to harrass her, or iinsult her or play games with her. She also believes that she is receiving hidden messages from the TV which communicate illegal activities which are going to take place and which she feels compelled to report to authorities. Alert and fully oriented. Denies memory, concentration problems. Insight is limited. Judgment appears somewhat impaired by delusional thinking. LABORATORY DATA: Laboratory Last Values WBC 7.4 10^3/ul (3.5-10.8) 08/04/17 23:14 RBC 4.50 10^6/ul (4.00-5.40) 08/04/17 23:14 Hgb 12.9 g/dl (12.0-16.0) 08/04/17 23:14 Hct 38 % (35-47) 08/04/17 23:14 MCV 85 fL (80-97) 08/04/17 23:14 MCH 29 pg (27-31) 08/04/17 23:14 MCHC 34 g/dl (31-36) 08/04/17 23:14 RDW 13 % (10.5-15) 08/04/17 23:14 Plt Count 245 10^3/ul (150-450) 08/04/17 23:14 MPV 8.4 um3 (7.4-10.4) 08/04/17 23:14 Neut % (Auto) 63.0 % (38-83) 08/04/17 23:14 Lymph % (Auto) 25.6 % (25-47) 08/04/17 23:14 Cabell % (Auto) 9.5 % (0-7) H 08/04/17 23:14 Eos % (Auto) 1.2 % (0-6) 08/04/17 23:14 Baso % (Auto) 0.7 % (0-2) 08/04/17 23:14 Absolute Neuts (auto) 4.7 10^3/ul (1.5-7.7) 08/04/17 23:14 Absolute Lymphs (auto) 1.9 10^3/ul (1.0-4.8) 08/04/17 23:14 Absolute Monos (auto) 0.7 10^3/ul (0-0.8) 08/04/17 23:14 Absolute Eos (auto) 0.1 10^3/ul (0-0.6) 08/04/17 23:14 Absolute Basos (auto) 0.1 10^3/ul (0-0.2) 08/04/17 23:14 Absolute Nucleated RBC 0 10^3/ul 08/04/17 23:14 Nucleated RBC % 0.1 08/04/17 23:14 Sodium 136 mmol/L (139-145) L 08/04/17 23:14 Potassium 3.2 mmol/L (3.5-5.0) L 08/04/17 23:14 Chloride 101 mmol/L (101-111) 08/04/17 23:14 Carbon Dioxide 26 mmol/L (22-32) 08/04/17 23:14 Anion Gap 9 mmol/L (2-11) 08/04/17 23:14 BUN 15 mg/dL (6-24) 08/04/17 23:14 Creatinine 0.90 mg/dL (0.51-0.95) 08/04/17 23:14 Est GFR ( Amer) 83.0 (>60) 08/04/17 23:14 Est GFR (Non-Af Amer) 64.5 (>60) 08/04/17 23:14 BUN/Creatinine Ratio 16.7 (8-20) 08/04/17 23:14 Glucose 93 mg/dL (70-100) 08/04/17 23:14 Calcium 9.0 mg/dL (8.6-10.3) 08/04/17 23:14 Total Bilirubin 0.60 mg/dL (0.2-1.0) 08/04/17 23:14 AST 45 U/L (13-39) H 08/04/17 23:14 ALT 20 U/L (7-52) 08/04/17 23:14 Alkaline Phosphatase 81 U/L (34-104) 08/04/17 23:14 Total Protein 6.7 g/dL (6.4-8.9) 08/04/17 23:14 Albumin 3.8 g/dL (3.2-5.2) 08/04/17 23:14 Globulin 2.9 g/dL (2-4) 08/04/17 23:14 Albumin/Globulin Ratio 1.3 (1-3) 08/04/17 23:14 TSH 2.30 mcIU/mL (0.34-5.60) 08/04/17 23:14 Urine Color Yellow 08/05/17 02:04 Urine Appearance Cloudy 08/05/17 02:04 Urine pH 5.0 (5-9) 08/05/17 02:04 Ur Specific [place] 1.012 (1.010-1.030) 08/05/17 02:04 Urine Protein Negative (Negative) 08/05/17 02:04 Urine Ketones 1+ (Negative) A 08/05/17 02:04 Urine Blood 2+ (Negative) A 08/05/17 02:04 Urine Nitrate Negative (Negative) 08/05/17 02:04 Urine Bilirubin Negative (Negative) 08/05/17 02:04 Urine Urobilinogen Negative (Negative) 08/05/17 02:04 Ur Leukocyte Esterase 3+ (Negative) A 08/05/17 02:04 Urine WBC (Auto) 3+(>20/hpf) (Absent) A 08/05/17 02:04 Urine RBC (Auto) 1+(3-5/hpf) (Absent) A 08/05/17 02:04 Urine Bacteria Absent (Absent) 08/05/17 02:04 Hyaline Casts Present (Absent) A 08/05/17 02:04 Urine Glucose Negative (Negative) 08/05/17 02:04 Salicylates < 2.50 mg/dL (<30) 08/04/17 23:14 Urine Opiates Screen None detected (None Detect) 08/05/17 02:04 Acetaminophen < 15 mcg/mL 08/04/17 23:14 Ur Barbiturates Screen None detected (None Detect) 08/05/17 02:04 Ur Phencyclidine Scrn None detected (None Detect) 08/05/17 02:04 Ur Amphetamines Screen None detected (None Detect) 08/05/17 02:04 U Benzodiazepines Scrn None detected (None Detect) 08/05/17 02:04 Urine Cocaine Screen None detected (None Detect) 08/05/17 02:04 U Cannabinoids Screen None detected (None Detect) 08/05/17 02:04 Serum Alcohol < 10 mg/dL (<10) 08/04/17 23:14 IMPRESSION: 57 yo with history of delusional disorder. patient has refused treatment in past. she returns for second admission Her symptoms are virtually unchanged. she is unable to function in community. She is homeless. she is gravely disabled. her insight and judgment are so impaired that she lacks capacity to appreciate the need for treatment she is danger to self. her psychosis has caused impairments and disruption in functioning in all areas of her life. she requires inpatient involuntary committtment for safety, and treatment DIAGNOSES: Delusonal Disorder persecutory type UTI shelley garcia PLAN: admit to [facility] on 939 involuntary committment. full code milieu, individual and group therapy patient refuses all medication will make seroquel 100 mg qhs prn available for insomnia will give ativan 1 mg q4h prn anxiety, agitation intention is to go to apply to court for involuntary committment and Treatment over objection septra DS one tabl po BID for UTI multivitamin daily
[2017-08-06] MEDS: Sulfamethox/Trimethoprim DS 800/160* TAB PO SCH ×2 (14:33→21:57)
[2017-08-06] MEDS ORDERED: QUEtiapine TAB* 100 MG PO PRN (17:40)
[2017-08-06] MEDS ORDERED: LORazepam TAB(*) 1 MG PO PRN (17:41)
[2017-08-06] MEDS ORDERED: Magnesium CITRATE* 300 ML BTL PO ONE (23:00)
[2017-08-07] MEDS: Vitamin THERAPEUTIC TAB PO SCH (13:24)
[2017-08-07] MEDS: Sulfamethox/Trimethoprim DS 800/160* TAB PO SCH ×2 (13:24→20:46)
[2017-08-08] MEDS: Vitamin THERAPEUTIC TAB PO SCH (09:02)
[2017-08-08] MEDS: Sulfamethox/Trimethoprim DS 800/160* TAB PO SCH ×2 (09:02→21:15)
--- NOTE | 2017-08-08 12:49 | PN ---
Subjective - Subjective Date of Service: 08/01/17 Service Type: 93720 Hosp care 15 min low complexity Subjective: "Are you a psychiatrist" patient asked. When she was told yes she walked away saying " I dont need to see a psychiatrist" Nursing staffs tried to convince her to at least talk to the proposal lead writer. She declined. Objective - Appearance Appearance: Thin Framed Dysmorphic Features: No Hygiene: Normal Grooming: Fairly Well Kept - Behavior Psychomotor Activities: Normal Exhibits Abnormal Movement: No - Attitude and Relatedness Attitude and Relatedness: Dismissive Eye Contact: Fair - Speech Quality: Unpressured Latencies: Normal Quantity: Appropriate - Mood Patient's Decription of Mood: "Upset" - Affect Observed Affect: Tense Affect Consistent with: Dysphoria - Thought Process Patient's Thought Process: Coherent, Disorganized Thought Content: No Passive Wish, No Suicidal Planning, No Homicidal Ideation, No Paranoid Ideation - Level of Consciousness Level of Consciousness: Alert Orientation: Yes Intact, Yes Orientated to Time, Yes Orientated to Place, Yes Orientated to Person - Impulse Control Impulse Control: Impaired - Group Participation Particating in Group Activities: No - Medication Management Medication Management Adherence: No Assessment - Assessment Merits Inpatient Hospitalization: To Initiate Treatment Plan - Plan Treatment Plan: Name: ANN VENTURA Birthdate: 1960 [id number] Continued Medication Management: Consider Medication Medications: Current Medications Al Hydrox/Mg Hydrox/Simethicone (Maalox Plus*) 30 ml PO Q4H PRN PRN Reason: INDIGESTION Lorazepam (Ativan Tab(*)) 1 mg PO Q4H PRN PRN Reason: ANXIETY Multivitamins (Theragran Tab*) 1 tab PO DAILY [facility] Last Admin: 08/08/17 09:02 Dose: Not Given Quetiapine Fumarate (Seroquel Tab*) 50 mg PO BEDTIME PRN PRN Reason: insomnia Trimethoprim/Sulfamethoxazole (Bactrim Ds 800/160 Tab*) 1 tab PO BID [facility] Stop: 08/12/17 21:01 Last Admin: 08/08/17 09:02 Dose: Not Given - Discharge Plan Discharge Plan: Inpatient Hospitalization
[2017-08-09] MEDS: Vitamin THERAPEUTIC TAB PO SCH (10:18)
[2017-08-09] MEDS: Sulfamethox/Trimethoprim DS 800/160* TAB PO SCH (10:18)
--- NOTE | 2017-08-09 11:38 | PN ---
Subjective - Subjective Subjective: Psychiatric Attending progress note: patient does not attend groups. She also refuses to engage one to one with Yuepu Sifang. stays in her room mostly. when interacting with nurses she is usually lodging a complaint about something that she deems is unsafe or harmful to her such as air quality. She had phone hearing today with director of institutional giving who will determine if DSS will be permitted to terminate housing assistance services. refusing Bactrim for UTI. reports she has no urinary symptoms MSE: I met with Ann for 30 minutes. maladaptive personality traits predominated during the conversation. patient is highly entitled, defiant, argumentative, suspicious and paranoid. She rambled for 15 minutes about all of the "strange" and "unsafe" things which were occuring in the temporary housing that she was [facility]. subsequently she wanted to know who all these students were that were being hired to question her. When I explained that they werent students but employees whose job was to spend time with patients to offer verbal support, she made devaluing statement. "If they can help me to find a job. because I need money, then that would be very helpful". Patient was told that people who are admitted here for treatment of mental illness. Patient continues to insist that there is nothing wrong with her. She believes she is the one who should be paid for pointing potential environmental hazards to DSS. Patient denies SI,HI,AH,VH. hher mood is irritible. She does not share specific persecutory or bizarre delusions today. My sense is that she is purposely not disclosing these delusions which she is aware are symptoms of mental illness. Patient believes that it is hospital staff's job to get her a job and to solidify housing for her.. insight/judgment grossly impaired. 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 Patient is not danger to self or others. She was admitted on voluntary basis. medication trial medically indicated to treat delusional disorder however patient refuses. Patient is not danger to self or others and although she is disabled I do not feel she is gravely disabled. Patient does not meet criteria for involuntary committment and Treatment against objection. Plan: patient can be discharged once temporary housing has been solidified repeat UA d/c bactrim for now Plan - Plan Treatment Plan: Name: ANN VENTURA Birthdate: 1960 [id number] Medications: Current Medications Al Hydrox/Mg Hydrox/Simethicone (Maalox Plus*) 30 ml PO Q4H PRN PRN Reason: INDIGESTION Lorazepam (Ativan Tab(*)) 1 mg PO Q4H PRN PRN Reason: ANXIETY Multivitamins (Theragran Tab*) 1 tab PO DAILY [facility] Last Admin: 08/09/17 10:18 Dose: Not Given Quetiapine Fumarate (Seroquel Tab*) 50 mg PO BEDTIME PRN PRN Reason: insomnia Trimethoprim/Sulfamethoxazole (Bactrim Ds 800/160 Tab*) 1 tab PO BID [facility] Stop: 08/12/17 21:01 Last Admin: 08/09/17 10:18 Dose: Not Given
[2017-08-10] MEDS: Vitamin THERAPEUTIC TAB PO SCH (09:14)
--- NOTE | 2017-08-10 14:20 | PN ---
Subjective - Subjective Subjective: Psychiatric Attending Progress Note: Per nursing and x ray technician report, patient does not actively participate in unit programming. She does not attend groups. She mostly secludes in her or remains on periphery of common area. She does not interact with other patients. Delia's interactions with staff all take form of pointing out to staff or questioning staff about procedures, comments, rules, conditions which she perceives as violating her rights, potential hazards to her health, negligence which purposely targets her. She remains preoccupied with dirty, filthy unsafe conditions of the housing offered to her by [facility]. She believes that she was given unsafe and environmentally dangerous housing on purpose but is unable to say why or who exactly is the perpetrator. she uses nebulous turns such as "I dont know but dont you find it funny that.....this is not just a random event...." the implication is that she is a target. She does state often: "...its like I'm being used to test things out...like I'm a guinea pig" Mood is irriitable. affect is constricted and sad. patient denies feeling depressed TP is circumstantial, overinclusive, perseverative. Thought content: clear cut paranoid and persecutory delusions. she is the center of everything. patient has no hallucinations. she is not suicidal or homicidal. insight is grossly impaired. judgment is fair. Montserrat MORAN and I met with patient for 30 minute session today patient again went on harangue about the susupicious conditions which were unsanitary and unsafe. bed bugs were biting her, pipes were exposed in bathroom etc...patient confronted about homelessness and the fact that [facility] she would have no place to live. family/friends not an option. Patient finally agreed to go to [facility] for longterm housing which is an option that she refused previously. She will not go to [place] [facility]. Asked patient about accepting low dose medication to decrease her paranoid ideation. she again refuses any and all medication Impression: Delusional Disorder persecutory type Personality disorder unspecified Patient would benefit from medication to treat her delusional belief system. She Patient is not a danger to herself or others. She is not in my opinion gravely disabled. Plan: discharge patient once temporary housing has been solidified. f/u to be arranged by SW. Plan - Plan Treatment Plan: Name: ANN VENTURA Birthdate: 1960 [id number] Medications: Current Medications Al Hydrox/Mg Hydrox/Simethicone (Maalox Plus*) 30 ml PO Q4H PRN PRN Reason: INDIGESTION Lorazepam (Ativan Tab(*)) 1 mg PO Q4H PRN PRN Reason: ANXIETY Multivitamins (Theragran Tab*) 1 tab PO DAILY [facility] Last Admin: 08/10/17 09:14 Dose: Not Given Quetiapine Fumarate (Seroquel Tab*) 50 mg PO BEDTIME PRN PRN Reason: insomnia
[2017-08-11] MEDS: Vitamin THERAPEUTIC TAB PO SCH (09:47)
--- NOTE | 2017-08-11 12:13 | PN ---
Subjective - Subjective Subjective: Psychiatric Attending Progress Note: denies any physical complaints. sleeps through the night. adequate appetite. does not attend program. minimal interaction with peers. mostly quiet, stays on periphery. Mental Status Exam: unchanged. patient remains preoccupied with obtaining housing. She has poor insight. She remains preoccupied with paranoid and persecutory delusional themes. She shared today that she would like to return to work and pay rent. she heard that her old apartment building has apartments for rent. When I gently confronted her about whether she believed she would be able to function and perform adequately and consistently in an employed situation, she answered emphatically "yes". Patient has not worked in 3 years. she was fired from numerous jobs due to her delusional beliefs which were highly disruptive in the work environment. patient is not suicidal or homicidal. she continues to refuse medication to treat her psychotic symptoms IMpression: delusional disorder personality disorder nos Plan: social work therapist given permission to speak with patient's sister awaiting DSS hearing result which will determine whether DSS will be permitted to terminate housing services to client patient agrees to correction housing at [facility] now. but it may be too late as she has refused this option in the past. patient may be discharged when suitable housing becomes available Plan - Plan Treatment Plan: Name: ANN VENTURA Birthdate: 1960 [id number] Medications: Current Medications Al Hydrox/Mg Hydrox/Simethicone (Maalox Plus*) 30 ml PO Q4H PRN PRN Reason: INDIGESTION Lorazepam (Ativan Tab(*)) 1 mg PO Q4H PRN PRN Reason: ANXIETY Multivitamins (Theragran Tab*) 1 tab PO DAILY ELIZABETH Last Admin: 08/11/17 09:47 Dose: Not Given Quetiapine Fumarate (Seroquel Tab*) 50 mg PO BEDTIME PRN PRN Reason: insomnia
[2017-08-11 15:27] LABS: Urine Appearance Clear; Urine Blood Negative (Negative); Urine Color Yellow; Urine Ketones Negative (Negative); Urine Protein Negative (Negative); Urine Specific Gravity 1.012 (1.010-1.030); Urine Urobilinogen Negative (Negative)
[2017-08-12] MEDS: Vitamin THERAPEUTIC TAB PO SCH (07:32)
--- NOTE | 2017-08-12 12:35 | PN ---
Subjective - Subjective Date of Service: 08/12/17 Service Type: 43812 Hosp care 15 min low complexity Subjective: The patient is seen in coverage for Dr. Schrader. She presents as guarded and paranoid, insisting we meet in the privacy of the comfort room and appearing tense and nervous. She asks to see my credentials and wants to know my first name. "Now how are you involved?" Once assuaged that I am only covering her case for one day, as Dr. Schrader is unavailable, but should return tomorrow, she relaxes but will not sit in my presence. She is not accepting any medications and tells me that she is only in the hospital to wait for a new place to live. She denies SI or HI. Objective - Appearance Appearance: Well Developed/Nourished Dysmorphic Features: No Hygiene: Normal Grooming: Well Kept - Behavior Psychomotor Activities: Normal Exhibits Abnormal Movement: No - Attitude and Relatedness Attitude and Relatedness: Guarded Eye Contact: Fair - Speech Quality: Unpressured Latencies: Long Quantity: Terse - Mood Patient's Decription of Mood: "Fine" - Affect Observed Affect: Tense Affect Consistent with: Dysphoria - Thought Process Patient's Thought Process: Circumstantial Thought Content: Yes Paranoid Ideation, No Passive Wish, No Suicidal Planning, No Homicidal Ideation - Sensorium Experiencing Hallucinations: No, Sensorium is Clear Type of Hallucinations: Visual: No, Auditory: No, Command: No - Level of Consciousness Level of Consciousness: Alert Orientation: Yes Intact, Yes Orientated to Time, Yes Orientated to Place, Yes Orientated to Person - Impulse Control Impulse Control: Poor - Insight and Judgement Insight and Judgement: Impaired - Group Participation Particating in Group Activities: No - Medication Management Medication Management Adherence: No Assessment - Assessment Merits Inpatient Hospitalization: For Immediate Safety, For Stabilization Inpatient DSM-V Dx: F22 Clinical Impression: 57 y.o. , female, currently homeless, unemployed, arrives displaying gross paranoia and inability to care for herself in the community. Plan - Plan Treatment Plan: Name: ANN VENTURA Birthdate: 1960 [id number] Patient is refusing meds and is interested only in housing placement. I understand she awaits some decision by DSS as to whether they will serve her with emergency financial and housing assistance. Will continue to treat on the inpatient service for now. Continued Medication Management: Consider Medication Medications: Current Medications Al Hydrox/Mg Hydrox/Simethicone (Maalox Plus*) 30 ml PO Q4H PRN PRN Reason: INDIGESTION Lorazepam (Ativan Tab(*)) 1 mg PO Q4H PRN PRN Reason: ANXIETY Multivitamins (Theragran Tab*) 1 tab PO DAILY ELIZABETH Last Admin: 08/12/17 07:32 Dose: Not Given Quetiapine Fumarate (Seroquel Tab*) 50 mg PO BEDTIME PRN PRN Reason: insomnia - Discharge Plan Discharge Plan: Inpatient Hospitalization
[2017-08-13] MEDS: Vitamin THERAPEUTIC TAB PO SCH (09:00)
--- NOTE | 2017-08-13 11:23 | PN ---
Subjective - Subjective Subjective: Psychiatric Attending progress Note: munitions factory worker and I met with Patient X 30 min session today Patient was told that [facility] Coordinator ruled in patient's favor. That is, DSS cannot refuse to provide services for patient. Patient remains irritible. She is preoccupied with a litany of complaints with common theme of being exploited, harmed or deceived by others. she reads hidden demeaning or threatening meanings into benign remarks or events. patient wrote a letter to [employer] of hospital stating that there was "unusual behavior" on the [facility]. "...There sedems to be constant signaling. when I am looking at paperwork/doing crosswords there seems to be some sort of communication frm patients almost signaling the answers". Further more she wrote: "...I don't appreciate staff communicating If there is a revolution or going to be a revolution, there will be assaulting..." Lastly patient has concerns that shei s being exposed to environmental hazzards by construction men who are completing a renovation on the unit. Patient reported that exposed debris was left in an open garbage can and she was concerned that this could be harming her health. No garbage can or debris were in fact left by construction crew working on our [facility]. Patient expressed desire to be discharged. I explained that in order for me to be comfortable with discharge she would need to agree to accept whatever temporary housing she was offered by [facility]. I also told patient that she would need to agree to mental health follow up by either [facility] or [facility]. Patient was equivocal and hesitant but finally agreed. [facility] would not have temp. housing available today but for wednesday. patient upset about this and preceded to argue that she would like discharge for today. Meeting was terminated. Patient continued to argue and make devaluing and paranoid statements. she displays tangentiality, often contradicts her self. She continues to have very poor insight. she believes that she will be able to return to work force sucessfully and verbalizes her plans to look for work. patient has no suicidal or homicidal ideation, intentions or plan. She is not danger to self or others at thist time. 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 Assessment - Assessment Inpatient DSM-V Dx: F22 Plan - Plan Treatment Plan: Name: ANN VENTURA Birthdate: 1960 [id number] Medications: Current Medications Al Hydrox/Mg Hydrox/Simethicone (Maalox Plus*) 30 ml PO Q4H PRN PRN Reason: INDIGESTION Lorazepam (Ativan Tab(*)) 1 mg PO Q4H PRN PRN Reason: ANXIETY Multivitamins (Theragran Tab*) 1 tab PO DAILY ELIZABETH Last Admin: 08/13/17 09:00 Dose: Not Given Quetiapine Fumarate (Seroquel Tab*) 50 mg PO BEDTIME PRN PRN Reason: insomnia
[2017-08-14] MEDS: Vitamin THERAPEUTIC TAB PO SCH (10:07)
[2017-08-15] MEDS: Vitamin THERAPEUTIC TAB PO SCH (09:09)
[2017-08-16 08:45] VITALS: BP 111/92
[2017-08-16] MEDS: Vitamin THERAPEUTIC TAB PO SCH (10:55)
--- NOTE | 2017-08-16 12:56 | DS ---
Subjective - Subjective Subjective: DISCHARGE SUMMARY PATIENT: Tiffanie Huerta : 1960 AGE: 57 PROVIDER: Bruce Schrader D.O. DATE OF ADMISSION: 08/05/2017 DATE OF DISCHARGE: 08/16/2017 DISCHARGE DIAGNOSES: Delusional Disorder Persecutory type Unspecified Personality Disorder (paranoid, narcissistic traits) CONDITION AT THE TIME OF DISCHARGE: unchanged, guarded MENTAL STATUS EXAM AT DISCHARGE: patient is able to establish rapport. she has good eye contact. speech is normal rate and volume. normal fluency and spontaneity. patient is able to perform her ADL's and has adequate hygiene. Patient's mood is at times irritible. she denies depression. no evidence of godfrey. Patient's thought process is coherent with intermittent illogic and irrelevant responses which result from anxiety caused by patient's paranoia. Patient is alert and f ully oriented. Patient has no auditory or visual hallucinations. Patient has no current or past history ofsuicidal or homicidal ideation. Patient continues to have ongoing paranoid ideation and persecutory delusions. Patient has very poor insight as she is unable to recognize or accept that she is suffering from mental illness. patient poor insight results in her refusal to accept medical treatment for her psychiatric condition. Her judgment is impaired but no so impaired that she cannot take care of herself in the community. There is no indication that she is dangerous to self or others at this time. Prognosis is guarded. I explained to patient that ongoing paranoia places her at risk for losing her housing as she already came very close to losing [facility] services. patient agreed to accept temporary housing and to go for follow up mental health treatment which has been scheduled by our hospital social media assistant. DISCHARGE INSTRUCTIONS: A. MEDICATIONS: None. Patient informed about reason medication was indicated and educated about side effects, benefits of medication. Patient did not consent to take any psychiatric medication during the hospital stay. B. DIET: Regular C. ACTIVITIES: TOLERATED NICOTINE REPLACEMENT THERAPY/SMOKING CESSATION REFERRAL NOT INDICATED PATIENT IS A NON SMOKER. THERE ARE NO LABORATORY OR DIAGNOSTIC STUDIES PENDING AT THE TIME OF DISCHARGE. D. FOLLOW UP CARE: 1. Recommendation is to attend an intake appointment at [facility] following discharge for therapy services. You are scheduled for the following appointment : August 20 at 9:30AM with Ginny Torres on the 4th floor. 2. Please go right to DSS following discharge to the Emergency/Temporary Services division to meet with Janny Mars. 3. A SPOE referral has been completed to assess your need for emergency housing and additional support services. Please remain connected with your assigned providers at [facility] regarding this referral. 4. Please set appointment with Dr. Blal within thirty days of discharge or as needed for medication management. E. SUBSTANCE ABUSE FOLLOWUP: NOT INDICATED ATTENDING PSYCHIATRIST HOSPITAL COURSE: PART A. JUSTIFICATION FOR ADMISSION: Patient has bizarre, somatic and persecutory delusions which are causing severe psychological distress, hypervigilance and insomnia. She has grossly impaired insight and judgment which increases risk that she could place herself in harms way. Based on grave disability patient meets criteria for inpatient psychiatric admission for safety, assessment, stabalization and treatment of her mental disorder. CHIEF COMPLAINT: upon presentation to the emergency room patient stated: "...alot of weird things have been happening to me...I feel like i'm in the twilight zone...I am not sleeping and there are bug bites all over my body.....no one is giving me answers....There is a dot in my eye that seems to move digitally and seems to take pictures....something has been embedded under my arm...." HISTORY OF THE PRESENT ILLNESS: Patient is a 57 yo woman of [place] descent \\who is well known to this provider. this is patient[facility] [place]. patient was admitted here 3 months ago when she presented with persecutory and paranoid delusons. 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 has been unable to work since 2016. Has been homeless past year. patient refuses any and all medication. she has severely impaired insight. Patient has been living in [facility] long-term housing. However, her paranoid delusions have resulted in [facility] terminating patient from receiving any services due to patient continual complaints about filthy conditions, insect infestations, and various other conditions which she believes are proof that persons are intentionally trying to harm, poison, harrass, communicate with her. she sees signs of malintent in peoples expressions. patient had nowhere to live and therefore she went to police department and asked to be taken to the ospital. 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 It appears that she began experiencing ideas of reference at work about 5 years ago which have progressed to paranoid ideation, delusions that she is being harrassed or "played with". Patient has been living in a long-term in [place] since returning from [place]. She has been out of work since May 2015. She has applied for jobs but has not been able to secure a new position. Patient has been living at the [facility] through [facility]. Patient called an ambulance as she was concerned about multiple bites on her arms and chest which she believed were bug bites. She has been increasingly preoccupied with what she believes are messages from the TV which she refers to as "words which are being spliced into the conversation of people acting on the TV". she believes that she has a gift of being able to decipher these messages. Some of the messages have been derogatory comments such as "Bitch" or "Whore" which she believes may be directed at her by unknown person or persons. Other messages are coming from drug dealers announcing that a drug deal is going to take place. Patient feels compelled to share these messaages she is receving with legal authorities. She went to [facility] in recent past and also called in a report by phone. She is frustrated as she doesn't believe she was taken seriously. Apparently she called the police again yesterday and when they arrived she was disorganized and delusional, claiming that she was a lab rat for [facility] and that she is being monitored by the government through a microchip which has been implanted in her upper arm. She also told police that [place] had changed since she was last here because the mountains have been moved. Patient reported in ER that she was "mentally distressed" and "not mentally safe" because she had been "contaminated over and over". Denies history of head trauma,epilepsy, psychiatric illness, or drug abuse. PAST PSYCHIATRIC HISTORY: Patient denies history of psychiaric illness, treatment or hospitalization denies history of diagnosed psychosis, mood disorder, neurological disorder SUBSTANCE ABUSE HISTORY: Reports drinking alcohol three times daily smokes 2 to 3 cigarettes daily PAST MEDICAL HISTORY: denies history of Csection X2 history of appendectomy CURRENT MEDICATIONS: none FAMILY PSYCHIATRIC HISTORY: reports that no one that she knows has been diagnosed with psychiatric disorder in her family but she believes that her brothers both suffer from depression FAMILY/PSYCHOSOCIAL HISTORY: Born in the [place] to [place] parents. graduated high school in [place]. 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 Subsequently, she got to an [facility] with who she had two children and moved with family to [place] where she raised her children. 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 Patient reports it was on this job that she began to have belief that "bizarre stuff is going on". She relates that she was accused of taking pictures of other employees. but maintains that the opposite was true. That is, she believes employees at that job were taking photographs of her secretly. Patient reports that after leaving this position she worked at [place] [employer] where she worked for two years. She related that she saw alot of suspicious behaviors there as well which she believes were covert and bizqarre. She believes employers were trying to communicate something to her through bizarre behaviors of the employees although she is unable to say exactly what the content of those communications were. 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 She was very suspicious of things said to her by other employees, believing that there was hidden meaning in the choice of words. She was perplexed but believed that people may have been conspiring against her. Patient reports that she has two sons. Jose Alberto aged 21 works two jobs and lives in [place]. 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 patient reprots she has friends but feels very bad athat she doesn't have money. She identifies lack of money as her main stressor. family lives in [place]. She has 1 brother . two brothers and one sister live in the [place]. She denies legal probelms or history of incarceration. She also denies history of physical or sexual Trauma. PHYSICAL EXAMINATION ON ADMISSION ON ADMISSION: Skin: warm, dry, reflects adequate perfusion, no exanthem Head: atraumatic Neck: supple, non-tender, no cervical or submandibular adenopathy, no bruits Eyes: EOMI, BRICE, conjunctiva without injection ENT: no nasal discharge, TM's w/o injection, pharynx without exudate or injection, no tonsillar hypertrophy, mucous membranes moist. no evidence of oral lesions Respiratory: CTA bilaterally without expiratory wheezing, no rhonchi, no retractions visible Cardiovascular: RRR normal s1 and s2. radial, brachoradialis, dorsalis pedis pulses symmetic 5+/5 bilaterally Abdomen: soft non tender, normoactive bowel sound present in all quadrants, no HSM, no palpable masses Musculoskeletal: full range of motions in all extremities, no evidence of spinal curvature Lymph: no axillary lypmphadenopathy Neuro: CN 2 to 12 intact, no sensory deficits, motor 5+/5 in upper and lower extremites, bilaterally symmetric no cerebellar signs, normal gait, no tremor MENTAL STATUS EXAMINATION ON ADMISSION: well developed and nourished 57 year old woman who has a thin frame. Patient appears mildly disheveled. Her hygiene would best be described as fair. she was fairly well related. speech does appear mildly pressured and mildly hyperverbal. normal volume and rhythm. she speaks japanese perfectly and is articulate with good vocabulary. patient reports mood as irritable. she denies dysphoria, amotivation, anergia, anhedonia. she admits to feeling hopeless, and a loss of interest because she cant secure a job and has no money with which to go out with . she denies past history or current suicidal ideation. she denies HI. she further denies AH,VH. Thought process: patient is mostly goal directed and organized. she is not tangential, does not exhibit thought blocking. she denies racing thoughts. Her responses are relevant. Thought content reveals that patient has been grappling for many years with referential thinking , paranoid and bizarre delusions which range from the belief that she is being used as a lab rat by [facility] to believing that innocent remarks or getstures made by coworkers have a sublimal or hidden meaning which signifies that someone is trying to harrass her, or iinsult her or play games with her. She also believes that she is receiving hidden messages from the TV which communicate illegal activities which are going to take place and which she feels compelled to report to authorities. Alert and fully oriented. Denies memory, concentration problems. Insight is limited. Judgment appears somewhat impaired by delusional thinking. HOSPITAL COURSE : PART B PSYCHIATRIC TREATMENT RENDERED: Patient was admitted to [facility] on voluntary status. She was integrated into the structured milieu and afforded individual and group therapies taught by the units interdisciplinary team of mental health professionals. mental status checks and vitals were closely monitored by 24 hour nursing staff with the assistance of mental health technical staff. Patient was evaluated and reassessed daily by a psychiatrist which included medication adjustment in order to ameliorate target symptoms. Patient was also seen on a daily basis by social media assistant for therapy and to solidify optimal discharge plan. Patient did present as a behavioral management problem on the unit. Patient's presentation during current admission was similar to how she presented on her first admission her in April 2017. Patient did not participate in any of the unit programming. She mostlyh remained in her room. She did not interact with other patient's. patient ate meals, performed her ADL's, and met with providers when approached. When not in her room, patient would interact with staff in thre form of complaints which all had a paranoid theme. patient was preoccupied with persecutory and paranoid delusons including : belieft that housing she was provided with is contaminated, unsafe, dirty, enviromentally dangerous. She believes bug bites she received are proof that "someone is messing with me" . Her on the unit patient made constant mention that she was being used by hospital as a guinea pig, that she suspected nurses or hospital might be taper recording her , or broadcasting her picture on television. Although she did eat while here, she did also suspect that her food had been tampered with. Patient believes that certain glances or looks by other patient's could be messages or signals that the patients are colluding to ridicule her or to talk negatively about her behind her back. Patient is impervious to attempts to reality test with her. any challenger to her beliefs are met dismissed by patient. As she did last admission Ms. Huerta was not amenable to mediation treatment She refused to acknowledge presence of mental illness. that is, her insight remains very poor. Patient was seen regularly by social media assistant. Because patient's paranoia has been so severe, she has refused to accept many housing options which were offered to her by [facility]. alternately, she has complained and been highly argumentative in many of the [facility] temporary housing which she was provided. as a result DSS applied to court requesting that they be able to discontinue provision of emergency housin services. The trial occurred during patient's stay on the [facility] Software Release Manager ruled that [facility] was required to continue providing patient with emergency housing and temporary housing in the event of homelessness. Patient had normal physical examination of admission. She also had normal admission labs including CBC, CMP, and thyroid function tests. Urinalysis was abnormal and therefore reflex urine culture was performed on two occasions. Both Cultures came back positive for Proteus Mirabalis 10,000 to 25, 000 CKU. Patient was prescribed Septra after first abnormal culture but refused stating that she did not have side effects of a UTI. She agreed to repeat the culture which came back with same result. patient continued to refuse treatment. she denied urinatry frequency, dysuria, back pain, hesitancy, nausia, vomiting, abdominal discomfort. patient has been afebrile with stable vital signs. patient encouraged to follow up this issue with PCP and she agreed to this. Patient requested discharge and as the attending provider, I did not feel that patient's mental status warranted involulntary committment application. Upon discharge, patient was not gravely disabled. She is able to care for her own needs. she has a place to live. She understands that she has been diagnosed with a mental illness. she also undertands that there is medication which could help diminish her paranoid and persecutory delusions. She does not agree and does not want medication at this time. She is not showing any indication that she is danger to herself or others. for these reason I am agreeing to discharge her so she may excercise right to liberty and pursuit of happiness. I explained that if she exhibits disruptive behaviors in the future which cause her to lose her housing, then this would signify that her illness has made her so disabled that she is no longer able to care for herself in the community and this wouldlikely cause any doctor to apply for involuntary committment and treatment over objection. patient verbalized her understanding of this. [place] [facility] she [place] a taxi cab to [facility] so she can be assigned temporary housing immediately. Despite pateint being a smoker, she refused nicotine replacement therapy while on the unit. she also declined referrral for smoking cessation program BRUCE SCHRADER DO
== END 2017-08-16 13:20 | disposition home or self-care (01) | DRG 760 ==
LOC: ED 22:38 → BSU 08-05 12:49
PROVIDERS: ADMIT Psychiatry & Neurology Psychiatry; ATTEND Psychiatry & Neurology Psychiatry
DX: F22 Delusional disorders (principal); N39.0 Urinary tract infection, site not specified; G47.00 Insomnia, unspecified; B96.4 Proteus (mirabilis) (morganii) as the cause of diseases classified elsewhere; F60.89 Other specific personality disorders; F41.9 Anxiety disorder, unspecified; F17.210 Nicotine dependence, cigarettes, uncomplicated; Z53.29 Procedure and treatment not carried out because of patient's decision for other reasons; Z88.8 Allergy status to other drugs, medicaments and biological substances; Z59.0 Homelessness; Z72.89 Other problems related to lifestyle; Z82.49 Family history of ischemic heart disease and other diseases of the circulatory system; Z81.8 Family history of other mental and behavioral disorders; Z83.3 Family history of diabetes mellitus; Z56.0 Unemployment, unspecified
CPT/HCPCS: 36415; 80053; 80307; 80320; 80329; 81003; 81015; 84443; 85025; 87077; 87086; 87184; 87186; 93005; 99222; 99231; 99232; 99238; 99282; A9270-GY; G0480

== ENCOUNTER 2017-11-02 01:28 | Emergency (ER) | payer OTHER ==
--- NOTE | 2017-11-02 01:52 | ED ---
Psychiatric Complaint - HPI Summary HPI Summary: A 57 y/o female GRACE presents to ED c/o being at "her wits end". As per triage, "Pt brought in by ambulance for MHE. Pt states she's been homeless for approximately one and a half years. States she's stayed in shelters but gets overwhelmed d/t lack of cleanliness and "strange people" Pt reports DSS attempting to place her in a "room" but pt declined stating "I don't feel comfortable" Pt reports feeling more comfortable sleeping at [facility] in a sheltered area there. Pt states she feels SI but has no plan at this time. States tonight she walked to [facility] to get help. Pt denies visual or auditory hallucinations but states "there's got to be something wrong with my ears because I hear things that are really far away and sometimes it feels like someone shut off my hearing" Pt cooperative at this time. Pt in behavioral control. All belongings inventoried and secured. Pt changed into blue scrubs". Patient is frustrated that she has to repeat her story/symptoms several times. Patient noted that [place] She came to ED because "she is at her wits end"/. No medications. Patient stated that she does not have SI, but they were present a few hours ago. She has been admitted [place] [facility] [place] - History Of Current Complaint Chief Complaint: EDMentalHealth Time Seen by Provider: 11/02/17 01:38 Hx Obtained From: Patient Hx Last Menstrual Period: menopausal Onset/Duration: Sudden Onset, Still Present Timing: Constant Severity Currently: None Character: Frustrated Aggravating Factor(s): Other - Homeless Alleviating Factor(s): Nothing Associated Signs And Symptoms: Positive: Negative Related History: Positive For: Prior Psychiatric Issues Has Suicidal: Denies: Thoughts - RESOLVED - Allergies/Home Medications Allergies/Adverse Reactions: Allergies Allergy/AdvReac Type Severity Reaction Status Date / Time acetaminophen AdvReac See Comment Verified 11/02/17 01:43 Home Medications: Home Medications NK [No Home Medications Reported] 11/02/17 [History Confirmed 11/02/17] PMH/Surg Hx/FS Hx/Imm Hx Endocrine/Hematology History: Denies: Hx Anticoagulant Therapy, Hx Diabetes, Hx Thyroid Disease Cardiovascular History: Reports: Hx Hypertension - pre Denies: Hx Congestive Heart Failure, Hx Deep Vein Thrombosis, Hx Myocardial Infarction, Hx Pacemaker/ICD Respiratory History: Denies: Hx Asthma, Hx Chronic Obstructive Pulmonary Disease (COPD), Hx Lung Cancer, Hx Pneumonia, Hx Pulmonary Embolism GI History: Denies: Hx Gall Bladder Disease, Hx Gastrointestinal Bleed, Hx Ulcer, Hx Urosepsis History: Denies: Hx Kidney Stones, Hx Renal Disease Sensory History: Reports: Hx Contacts or Glasses Denies: Hx Hearing Aid Opthamlomology History: Reports: Hx Contacts or Glasses Neurological History: Denies: Hx Dementia, Hx Migraine, Hx Seizures, Hx Transient Ischemic Attacks (TIA) Psychiatric History: Denies: Hx Anxiety, Hx Eating Disorder, Hx Depression, Hx Schizophrenia, Hx Bipolar Disorder, Hx of Violent Episodes Against Others - Surgical History Surgery Procedure, Year, and Place: Appendectomy, C Section x 2 - Immunization History Date of Tetanus Vaccine: unk Date of Influenza Vaccine: unk Infectious Disease History: No Infectious Disease History: Denies: Hx Hepatitis, Hx Human Immunodeficiency Virus (HIV), History Other Infectious Disease, Traveled Outside the [place] in Last 30 Days - Family History Known Family History: Positive: Cardiac Disease - brother -- [place] before age of 50. , Diabetes Negative: Hypertension - Social History Alcohol Use: Occasionally Alcohol Amount: 2-3 drinks a week Hx Substance Use: No Substance Use Type: Reports: None Hx Tobacco Use: Yes Smoking Status (MU): Light Every Day Tobacco Smoker Type: Cigarettes Amount Used/How Often: Pt has smoked 10 cigs in last 30 days, used no other tobacco products Length of Time of Smoking/Using Tobacco: social, very rarely Have You Smoked in the Last Year: Yes Review of Systems Negative: Fever Psychological: Other - NEGATIVE: SI (resolved) All Other Systems Reviewed And Are Negative: Yes Physical Exam - Summary Physical Exam Summary: VITAL SIGNS: Reviewed. GENERAL: Patient is a well-developed and nourished female who is lying comfortable in the stretcher. Patient is not in any acute respiratory distress. HEAD AND FACE: No signs of trauma. No ecchymosis, hematomas or skull depressions. No sinus tenderness. EYES: PERRLA, EOMI x 2, No injected conjunctiva, no nystagmus. EARS: Hearing grossly intact. Ear canals and tympanic membranes are within normal limits. MOUTH: Oropharynx within normal limits. NECK: Supple, trachea is midline, no adenopathy, no JVD, no carotid bruit, no c- spine tenderness, neck with full ROM. CHEST: Symmetric, no tenderness at palpation LUNGS: Clear to auscultation bilaterally. No wheezing or crackles. CVS: Regular rate and rhythm, S1 and S2 present, no murmurs or gallops appreciated. ABDOMEN: Soft, non-tender. No signs of distention. No rebound no guarding, and no masses palpated. Bowel sounds are normal. EXTREMITIES: FROM in all major joints, no edema, no cyanosis or clubbing. NEURO: Alert and oriented x 3. No acute neurological deficits. Speech is normal and follows commands. SKIN: Dry and warm PSYCH: Denies SI Triage Information Reviewed: Yes Vital Signs On Initial Exam: Initial Vitals Temp Pulse Resp BP Pulse Ox 97.6 F 71 16 120/76 99 11/02/17 01:37 11/02/17 01:37 11/02/17 01:37 11/02/17 01:37 11/02/17 01:37 Vital Signs Reviewed: Yes Diagnostics - Vital Signs Vital Signs Temp Pulse Resp BP Pulse Ox 11/02/17 01:37 97.6 F 71 16 120/76 99 - Laboratory Result Diagrams: 11/02/17 02:10 11/02/17 02:10 Lab Statement: Any lab studies that have been ordered have been reviewed, and results considered in the medical decision making process. Course/Dx - Course Course Of Treatment: Patient is signed out to Dr. Gabe De La O via Dr. Adamaris Holliday, awaiting social work consult, pending disposition at shift change on 12/2017 at 0700. - Differential Dx/Clinical Impression Provider Diagnosis: Anxiety Discharge - Sign-Out/Discharge Documenting (check all that apply): Sign-Out Patient Signing out patient TO: Gabe De La O Receiving patient FROM: Adamaris Holliday - Discharge Plan Condition: Stable Referrals: Celina Ball MD [Primary Care Provider] - - Attestation Statements Document Initiated by Scribe: Yes Documenting Scribe: Kurt Chandler Provider For Whom Scribe is Documenting (Include Credential): Adamaris Holliday MD Scribe Attestation: Kurt Prasad, scribed for Adamaris Holliday MD on 11/02/17 at 0656.
[2017-11-02 02:21] LABS: ABS Basophils 0.1 10^3/ul (0-0.2); ABS Eosinophils 0.1 10^3/ul (0-0.6); ABS Monocytes 0.7 10^3/ul (0-0.8); ABS Neutrophils 2.9 10^3/ul (1.5-7.7); ABS Nucleated RBC 0 10^3/ul; Eosinophil % 1.4 % (0-6); Hematocrit 40 % (35-47); Hemoglobin 13.4 g/dl (12.0-16.0); Lymphocyte % 34.4 % (25-47); Mean Corpuscular HGB Conc 34 g/dl (31-36); Mean Corpuscular Hemoglobin 29 pg (27-31); Mean Corpuscular Volume 86 fL (80-97); Mean Platelet Volume 8.8 um3 (7.4-10.4); Nucleated Red Blood Cells % 0.1; Platelet Count 274 10^3/ul (150-450); Red Blood Count 4.63 10^6/ul (4.00-5.40); Red Cell Distribution Width 14 % (10.5-15); White Blood Count 5.7 10^3/ul (3.5-10.8)
[2017-11-02 02:37] LABS: EGFR Non-African American 80.9 (>60)
[2017-11-02 02:55] LABS: Urine Appearance Clear; Urine Blood Negative (Negative); Urine Color Yellow; Urine Ketones Trace (Negative); Urine Protein Negative (Negative); Urine Red Blood Cell Absent (Absent); Urine Specific Gravity 1.012 (1.010-1.030); Urine Urobilinogen Negative (Negative); Urine White Blood Cell 1+(6-10/hpf) (Absent)
[2017-11-02] MEDS ORDERED: Potassium Chlor TAB* 20 MEQ TAB.ER PO ONE (03:08)
--- NOTE | 2017-11-02 05:56 | PN ---
ED Flex Patient Progress Note Subjective: This is a 57 year-old F who is pending psychiatric evaluation secondary to ____ SI w/o plan and homelessness . Pt offers no complaints at this time. Would like breakfast. Has had a turkey sandwich w/o difficulty. Denies urgency, frequency, dysuria, flank pain, fever, chills, N/V. Objective: Vitals: Most recent vital signs documented below. General NAD, resting in bed but is easily roused w/ vocal stimuli, Alert and oriented x3. Heart: rrr, S1/S2 Lungs: CTA, BREATHING EASILY AB: + BS, soft, NTTP Laboratory: Current laboratory results documented below. Assessment: 1) SI 2) Calcium oxalate on U/A Plan: 1) Pending psychiatric eval. Will follow up daily __while in ED___. 2) No sx - could be passing stones but renal function appears well. No further action at this time. Vital Signs Temp Pulse Resp BP Pulse Ox 99.7 F 70 16 134/71 100 11/02/17 03:33 11/02/17 03:33 11/02/17 03:33 11/02/17 03:33 11/02/17 03:33 Lab Results - Entire Visit 11/02/17 11/02/17 11/02/17 02:10 02:10 02:10 WBC 5.7 RBC 4.63 Hgb 13.4 Hct 40 MCV 86 MCH 29 MCHC 34 RDW 14 Plt Count 274 MPV 8.8 Neut % (Auto) 50.9 Lymph % (Auto) 34.4 Person % (Auto) 12.1 H Eos % (Auto) 1.4 Baso % (Auto) 1.2 Absolute Neuts (auto) 2.9 Absolute Lymphs (auto) 2.0 Absolute Monos (auto) 0.7 Absolute Eos (auto) 0.1 Absolute Basos (auto) 0.1 Absolute Nucleated RBC 0 Nucleated RBC % 0.1 Sodium 140 Potassium 3.1 L Chloride 104 Carbon Dioxide 30 Anion Gap 6 BUN 17 Creatinine 0.74 Est GFR ( Amer) 97.9 Est GFR (Non-Af Amer) 80.9 BUN/Creatinine Ratio 23.0 H Glucose 85 Calcium 8.8 Total Bilirubin 0.50 AST 19 ALT 18 Alkaline Phosphatase 58 Total Protein 7.1 Albumin 4.2 Globulin 2.9 Albumin/Globulin Ratio 1.4 TSH 2.53 Urine Color Urine Appearance Urine pH Ur Specific [place] Urine Protein Urine Ketones Urine Blood Urine Nitrate Urine Bilirubin Urine Urobilinogen Ur Leukocyte Esterase Urine WBC (Auto) Urine RBC (Auto) Ur Squamous Epith Cells Calcium Oxalate Crystal Urine Bacteria Hyaline Casts Urine Glucose Salicylates < 2.50 Urine Opiates Screen None detected Acetaminophen < 15 Ur Barbiturates Screen None detected Ur Phencyclidine Scrn None detected Ur Amphetamines Screen None detected U Benzodiazepines Scrn None detected Urine Cocaine Screen None detected U Cannabinoids Screen None detected Serum Alcohol < 10 11/02/17 02:05 WBC RBC Hgb Hct MCV MCH MCHC RDW Plt Count MPV Neut % (Auto) Lymph % (Auto) Person % (Auto) Eos % (Auto) Baso % (Auto) Absolute Neuts (auto) Absolute Lymphs (auto) Absolute Monos (auto) Absolute Eos (auto) Absolute Basos (auto) Absolute Nucleated RBC Nucleated RBC % Sodium Potassium Chloride Carbon Dioxide Anion Gap BUN Creatinine Est GFR ( Amer) Est GFR (Non-Af Amer) BUN/Creatinine Ratio Glucose Calcium Total Bilirubin AST ALT Alkaline Phosphatase Total Protein Albumin Globulin Albumin/Globulin Ratio TSH Urine Color Yellow Urine Appearance Clear Urine pH 5.0 Ur Specific [place] 1.012 Urine Protein Negative Urine Ketones Trace A Urine Blood Negative Urine Nitrate Negative Urine Bilirubin Negative Urine Urobilinogen Negative Ur Leukocyte Esterase 1+ A Urine WBC (Auto) 1+(6-10/hpf) A Urine RBC (Auto) Absent Ur Squamous Epith Cells Present A Calcium Oxalate Crystal Present A Urine Bacteria Absent Hyaline Casts Present A Urine Glucose Negative Salicylates Urine Opiates Screen Acetaminophen Ur Barbiturates Screen Ur Phencyclidine Scrn Ur Amphetamines Screen U Benzodiazepines Scrn Urine Cocaine Screen U Cannabinoids Screen Serum Alcohol
--- NOTE | 2017-11-02 07:07 | ED ---
Progress - Progress Note Progress Note: A 57 y/o female GRACE presents to ED c/o being at "her wits end". Patient is signed out to Dr. Gabe De La O via Dr. Adamaris Holliday, awaiting social work consult, pending disposition at shift change on 11/02/2017 at 0700. - Consult/PCP Time Called: 03:15 Course/Dx - Course Course Of Treatment: Patient is signed out to Dr. Gabe De La O via Dr. Adamaris Holliday, awaiting social work consult, pending disposition at shift change on 12/2017 at 0700. Patient will be discharged to [facility] for housing. Dx is adjustment. Overseen by Jake Martinez MD. - Diagnoses Provider Diagnoses: Adjustment disorder Discharge - Sign-Out/Discharge Documenting (check all that apply): Patient Departure - D/C to [facility], Receiving Sign-Out Receiving patient FROM: Adamaris Holliday - Awaiting social work consult - Discharge Plan Condition: Stable Disposition: HOME Patient Education Materials: Stress (ED) Referrals: Celina Ball MD [Primary Care Provider] - - Billing Disposition and Condition Condition: STABLE Disposition: Home - Attestation Statements Document Initiated by Scribe: Yes Documenting Scribe: Marques Posada Provider For Whom Deniseibshelbi is Documenting (Include Credential): Gabe De La O MD Scribe Attestation: Marques Prasad scribed for Gabe De La O MD on 11/02/17 at 1810. Scribe Documentation Reviewed: Yes Provider Attestation: The documentation as recorded by the Marques balbuena accurately reflects the service I personally performed and the decisions made by , Gabe De La O MD
[2017-11-02 16:42] VITALS: BP 140/85
== END 2017-11-02 16:41 | disposition home or self-care (01) ==
LOC: ED 01:28
DX: F43.22 Adjustment disorder with anxiety (principal); F17.210 Nicotine dependence, cigarettes, uncomplicated; Z59.0 Homelessness
CPT/HCPCS: 36415; 80053; 80307; 80320; 80329; 81003; 81015; 84443; 85025; 87086; 99285; A9270-GY; G0480

== ENCOUNTER 2017-11-09 22:41 | Emergency (ER) | payer OTHER ==
[2017-11-09] MEDS ORDERED: diPHENhydraMINE PO* 25 MG PO ONE (22:56)
--- NOTE | 2017-11-09 23:30 | ED ---
Complex/Multi-Sys Presentation - HPI Summary HPI Summary: Pt is a 57 y/o female BIBA who presents to the ED c/o exhaustion. She states she is homeless and has not gotten much sleep this past week. Pt has been sleeping at [place] [facility] for the past 2 days, and got rained on. Pt admits she is here because she needs a place to sleep She has been homeless for 1.5 years [facility]. Pt left because of poor conditions. 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 Pt is unemployed and has tried to get a job. She states she does not want to work a minimum wage job because she is over-qualified. Pt is able to work physically and mentally. She states she hasnt been eating enough, but says she is not hungry right now. Pt has children in the area, but does not want to burden them with her homelessness. She smokes sometimes when stressed. Pt drinks occasionally. - History Of Current Complaint Chief Complaint: EDGeneral Time Seen by Provider: 11/09/17 22:43 Hx Obtained From: Patient Onset/Duration: Gradual Onset, Lasting Weeks, Still Present Timing: Constant Aggravating Factor(s): Homelessness Associated Signs And Symptoms: Positive: Other - Exhaustion, hunger - Allergies/Home Medications Allergies/Adverse Reactions: Allergies Allergy/AdvReac Type Severity Reaction Status Date / Time acetaminophen AdvReac See Comment Verified 11/02/17 01:43 PMH/Surg Hx/FS Hx/Imm Hx Endocrine/Hematology History: Denies: Hx Anticoagulant Therapy, Hx Diabetes, Hx Thyroid Disease Cardiovascular History: Reports: Hx Hypertension - pre Denies: Hx Congestive Heart Failure, Hx Deep Vein Thrombosis, Hx Myocardial Infarction, Hx Pacemaker/ICD Respiratory History: Denies: Hx Asthma, Hx Chronic Obstructive Pulmonary Disease (COPD), Hx Lung Cancer, Hx Pneumonia, Hx Pulmonary Embolism GI History: Denies: Hx Gall Bladder Disease, Hx Gastrointestinal Bleed, Hx Ulcer, Hx Urosepsis History: Denies: Hx Kidney Stones, Hx Renal Disease Sensory History: Reports: Hx Contacts or Glasses Denies: Hx Hearing Aid Opthamlomology History: Reports: Hx Contacts or Glasses Neurological History: Denies: Hx Dementia, Hx Migraine, Hx Seizures, Hx Transient Ischemic Attacks (TIA) Psychiatric History: Denies: Hx Anxiety, Hx Eating Disorder, Hx Depression, Hx Schizophrenia, Hx Bipolar Disorder, Hx of Violent Episodes Against Others - Surgical History Surgery Procedure, Year, and Place: Appendectomy, C Section x 2 - Immunization History Date of Tetanus Vaccine: unk Date of Influenza Vaccine: unk Infectious Disease History: No Infectious Disease History: Denies: Hx Hepatitis, Hx Human Immunodeficiency Virus (HIV), History Other Infectious Disease, Traveled Outside the [place] in Last 30 Days - Family History Known Family History: Positive: Cardiac Disease - brother -- [place] before age of 50. , Diabetes Negative: Hypertension - Social History Alcohol Use: Occasionally Alcohol Amount: 2-3 drinks a week Hx Substance Use: No Substance Use Type: Reports: None Hx Tobacco Use: Yes Smoking Status (MU): Light Every Day Tobacco Smoker Type: Cigarettes Amount Used/How Often: Pt has smoked 10 cigs in last 30 days, used no other tobacco products Length of Time of Smoking/Using Tobacco: social, very rarely Have You Smoked in the Last Year: Yes Review of Systems Positive: Fatigue Positive: Other - Hungry All Other Systems Reviewed And Are Negative: Yes Physical Exam - Summary Physical Exam Summary: Appearance: Well appearing, no pain distress Skin: warm, dry, reflects adequate perfusion Head/face: normal Eyes: EOMI, PAVEL ENT: normal Neck: supple, non-tender Respiratory: CTA, breath sounds present Cardiovascular: RRR, pulses symmetrical Abdomen: non-tender, soft Bowel Sounds: present Musculoskeletal: normal, strength/ROM intact Neuro: normal, sensory motor intact, A&Ox3 Triage Information Reviewed: Yes Vital Signs On Initial Exam: Initial Vitals Temp Pulse Resp BP Pulse Ox 97.8 F 79 16 144/92 96 11/09/17 22:53 11/09/17 22:53 11/09/17 22:53 11/09/17 22:53 11/09/17 22:53 Vital Signs Reviewed: Yes Diagnostics - Vital Signs Vital Signs Temp Pulse Resp BP Pulse Ox 11/09/17 22:53 97.8 F 79 16 144/92 96 - Laboratory Lab Statement: Any lab studies that have been ordered have been reviewed, and results considered in the medical decision making process. Complex Multi-Symp Course/Dx Course Of Treatment: Homeless individual who has not been able to sleep due to her social circumstances recently presents with fatigue. She would like something to sleep and would like to rest here. She was given Benadryl up to rest. She was discharged in good condition. - Diagnoses Provider Diagnoses: Homelessness, Fatigue Discharge - Sign-Out/Discharge Documenting (check all that apply): Patient Departure - Discharge Plan Condition: Improved Disposition: HOME Patient Education Materials: Fatigue (ED) Referrals: Celina Ball MD [Primary Care Provider] - Additional Instructions: Follow up with DSS/Section 8 housing office. Return if worse, new symptoms or other concerns. - Billing Disposition and Condition Condition: IMPROVED Disposition: Home - Attestation Statements Document Initiated by Scribe: Yes Documenting Scribe: Leena Tidwell Provider For Whom Abhishek is Documenting (Include Credential): Renzo Miramontes MD Scribe Attestation: Leena Prasad, scribed for Renzo Miramontes MD on 11/10/17 at 0224. Scribe Documentation Reviewed: Yes Provider Attestation: The documentation as recorded by the Leena balbuena accurately reflects the service I personally performed and the decisions made by me, Renzo Miramontes MD
[2017-11-10 06:26] VITALS: BP 132/90
== END 2017-11-10 06:23 | disposition home or self-care (01) ==
LOC: ED 22:41
DX: Z59.0 Homelessness (principal); R53.83 Other fatigue; Z88.6 Allergy status to analgesic agent; Z82.49 Family history of ischemic heart disease and other diseases of the circulatory system; Z83.3 Family history of diabetes mellitus; F17.210 Nicotine dependence, cigarettes, uncomplicated
CPT/HCPCS: 99282; A9270-GY

== ENCOUNTER 2018-01-03 18:15 | Emergency (ER) | payer OTHER ==
[2018-01-03] MEDS ORDERED: Ketorolac INJ* 30 MG/ML 1 ML VIAL IM ONE (18:58)
[2018-01-03] MEDS ORDERED: Nicotine Inhaler* 10 MG AMP INH PRN (18:59)
--- NOTE | 2018-01-03 19:21 | ED ---
Psychiatric Complaint - HPI Summary HPI Summary: A 57 y/o female brought in by ambulance presents to the ED c/o SI since 2017. She says that she lives in a tent and sleeps in the cold, which is causing her SI. Since 01/20/2018 she also c/o coughing. She states that she was coughing up green phlegm until today when she was just coughing. She is taking amoxicillin that was prescribed to her at [facility] urgent care. She also c/o a severe headache with nausea since 17:00 on 01/03/2018 which she describes as "like a sledgehammer", photophobia and right arm pain. She denies sore throat. She takes medication for stress. - History Of Current Complaint Chief Complaint: EDMentalHealth Time Seen by Provider: 01/03/18 18:28 Hx Obtained From: Patient Hx Last Menstrual Period: menopausal Onset/Duration: Gradual Onset, Still Present Severity Initially: Moderate Severity Currently: Moderate Has Suicidal: Reports: Thoughts - Allergies/Home Medications Allergies/Adverse Reactions: Allergies Allergy/AdvReac Type Severity Reaction Status Date / Time acetaminophen AdvReac See Comment Verified 12/22/17 17:52 Home Medications: Home Medications Amoxicillin/Clavulanate TAB* [Augmentin TAB 875*] 1 tab PO BID 01/03/18 [ History Confirmed 01/03/18] QUEtiapine TAB* [Seroquel 25 MG TAB*] 25 mg PO BID PRN 01/03/18 [History Confirmed 01/03/18] PMH/Surg Hx/FS Hx/Imm Hx Endocrine/Hematology History: Denies: Hx Anticoagulant Therapy, Hx Diabetes, Hx Thyroid Disease Cardiovascular History: Reports: Hx Hypertension - pre Denies: Hx Congestive Heart Failure, Hx Deep Vein Thrombosis, Hx Myocardial Infarction, Hx Pacemaker/ICD Respiratory History: Denies: Hx Asthma, Hx Chronic Obstructive Pulmonary Disease (COPD), Hx Lung Cancer, Hx Pneumonia, Hx Pulmonary Embolism GI History: Denies: Hx Gall Bladder Disease, Hx Gastrointestinal Bleed, Hx Ulcer, Hx Urosepsis History: Denies: Hx Kidney Stones, Hx Renal Disease Sensory History: Reports: Hx Contacts or Glasses Denies: Hx Hearing Aid Opthamlomology History: Reports: Hx Contacts or Glasses Neurological History: Denies: Hx Dementia, Hx Migraine, Hx Seizures, Hx Transient Ischemic Attacks (TIA) Psychiatric History: Denies: Hx Anxiety, Hx Eating Disorder, Hx Depression, Hx Schizophrenia, Hx Bipolar Disorder, Hx of Violent Episodes Against Others - Surgical History Surgery Procedure, Year, and Place: Appendectomy, C Section x 2 - Immunization History Date of Tetanus Vaccine: unk Date of Influenza Vaccine: unk Infectious Disease History: No Infectious Disease History: Denies: Hx Hepatitis, Hx Human Immunodeficiency Virus (HIV), History Other Infectious Disease, Traveled Outside the [place] in Last 30 Days - Family History Known Family History: Positive: Cardiac Disease - brother -- [place] before age of 50. , Diabetes Negative: Hypertension - Social History Alcohol Use: Occasionally Alcohol Amount: 2-3 drinks a week Hx Substance Use: No Substance Use Type: Reports: None Hx Tobacco Use: Yes Smoking Status (MU): Light Every Day Tobacco Smoker Type: Cigarettes Amount Used/How Often: Pt has smoked 10 cigs in last 30 days, used no other tobacco products Length of Time of Smoking/Using Tobacco: social, very rarely Have You Smoked in the Last Year: Yes Review of Systems Positive: Photophobia Negative: Sore Throat Positive: Cough Positive: Nausea Positive: Myalgia - right arm Positive: Headache Positive: Other - Positive: SI All Other Systems Reviewed And Are Negative: Yes Physical Exam - Summary Physical Exam Summary: Appearance: The patient is well-nourished in no acute distress and in no acute pain. Skin: The skin is warm and dry and skin color reflects adequate perfusion. HEENT: The head is normocephalic and atraumatic. The pupils are equal and reactive. The conjunctivae are clear and without drainage. Nares are patent and without drainage. Mouth reveals moist mucous membranes and the throat is without erythema and exudate. The external ears are intact. The ear canals are patent and without drainage. The tympanic membranes are intact. Neck: The neck is supple with full range of motion and non-tender. There are no carotid bruits. There is no neck vein distension. Respiratory: Chest is non-tender. Lungs are clear to auscultation and breath sounds are symmetrical and equal. Cardiovascular: Heart is regular rate and rhythm. There is no murmur or rub auscultated. There is no peripheral edema and pulses are symmetrical and equal. Abdomen: The abdomen is soft and non-tender. There are normal bowel sounds heard in all four quadrants and there is no organomegaly palpated. Musculoskeletal: There is no back tenderness noted. Extremities are non-tender with full range of motion. There is good capillary refill. There is no peripheral edema or calf tenderness elicited. Neurological: Patient is alert and oriented to person, place and time. The patient has symmetrical motor strength in all four extremities. Cranial nerves are grossly intact. Deep tendon reflexes are symmetrical and equal in all four extremities. Psychiatric: The patient has an appropriate affect and does not exhibit any anxiety or depression. Triage Information Reviewed: Yes Vital Signs On Initial Exam: Initial Vitals Temp Pulse Resp BP Pulse Ox 98.4 F 75 17 162/109 100 01/03/18 18:25 01/03/18 18:25 01/03/18 18:25 01/03/18 18:25 01/03/18 18:25 Vital Signs Reviewed: Yes Diagnostics - Vital Signs Vital Signs Temp Pulse Resp BP Pulse Ox 01/03/18 18:25 98.4 F 75 17 162/109 100 - Laboratory Result Diagrams: 01/03/18 19:21 01/03/18 19:21 Lab Statement: Any lab studies that have been ordered have been reviewed, and results considered in the medical decision making process. Re-Evaluation - Re-Evaluation First Eval Re-Evaluation Time: 19:00 Change: Unchanged Comment: Pt cleared for MHE. Course/Dx - Course Course Of Treatment: Ms. Huerta - Differential Dx/Clinical Impression Provider Diagnosis: Adjustment disorder Discharge - Sign-Out/Discharge Documenting (check all that apply): Sign-Out Patient Signing out patient TO: Adamaris Holliday - Discharge Plan Condition: Stable Referrals: Celina Ball MD [Primary Care Provider] - - Billing Disposition and Condition Condition: STABLE - Attestation Statements Document Initiated by Scribe: Yes Documenting Scribe: Nikko Tse Provider For Whom Scribe is Documenting (Include Credential): Daniel Carpenter MD Scribe Attestation: Nikko Prasad, scribed for Daniel Carpenter MD on 01/03/18 at 2102. Scribe Documentation Reviewed: Yes Provider Attestation: The documentation as recorded by the Nikko balbuena accurately reflects the service I personally performed and the decisions made by me, Daniel Carpenter MD
[2018-01-03 19:37] LABS: ABS Basophils 0.1 10^3/ul (0-0.2); ABS Eosinophils 0.1 10^3/ul (0-0.6); ABS Lymphocytes 1.6 10^3/ul (1.0-4.8); ABS Monocytes 0.7 10^3/ul (0-0.8); ABS Neutrophils 4.4 10^3/ul (1.5-7.7); ABS Nucleated RBC 0 10^3/ul; Eosinophil % 1.6 % (0-6); Hematocrit 38 % (35-47); Hemoglobin 12.7 g/dl (12.0-16.0); Lymphocyte % 23.9 % (25-47); Mean Corpuscular HGB Conc 34 g/dl (31-36); Mean Corpuscular Hemoglobin 29 pg (27-31); Mean Corpuscular Volume 86 fL (80-97); Mean Platelet Volume 8.5 fL (7.4-10.4); Nucleated Red Blood Cells % 0.1; Platelet Count 279 10^3/ul (150-450); Red Cell Distribution Width 14 % (10.5-15); White Blood Count 6.9 10^3/ul (3.5-10.8)
[2018-01-03 19:56] LABS: EGFR Non-African American 113.9 (>60)
[2018-01-03 20:13] LABS: Urine Appearance Clear; Urine Blood Negative (Negative); Urine Color Yellow; Urine Ketones Negative (Negative); Urine Protein Negative (Negative); Urine Red Blood Cell Absent (Absent); Urine Urobilinogen Negative (Negative); Urine White Blood Cell Trace(0-5/hpf) (Absent)
--- NOTE | 2018-01-03 22:38 | ED ---
Progress - Progress Note Progress Note: This patient was signed out from Dr. Carpenter on shift change awaiting MHE. After a MHE by Dr. Martinez the patient was deemed stable to be discharged home. Re-Evaluation - Re-Evaluation First Eval Re-Evaluation Time: 19:00 Change: Unchanged Comment: Pt cleared for MHE. Course/Dx - Course Course Of Treatment: This patient was signed out from Dr. Carpenter on shift change awaiting MHE. After a MHE by Dr. Martinez the patient was deemed stable to be discharged home. The patient will be set up with a housing service in the morning. - Diagnoses Provider Diagnoses: Homelessness Discharge - Sign-Out/Discharge Documenting (check all that apply): Patient Departure, Receiving Sign-Out Receiving patient FROM: Daniel Carpenter - Discharge Plan Condition: Stable Disposition: HOME Referrals: Celina Ball MD [Primary Care Provider] - Additional Instructions: Per completion of a mental health evaluation, you are cleared for release and do not require inpatient psychiatric hospitalization at this time. Please go to nearest emergency room or call 911 if safety concerns arise or condition worsens. Important Phone Numbers: [facility].............[phone] Suicide Prevention and Crisis Services........................ [phone] National Suicide Prevention Lifeline............................ 998-642-CFVF (8416) [facility]....................... [phone] Alcoholics Anonymous............................................... [facility].............. [phone] [facility] Police.............................................. Go to [facility] of Food Service Order Clerk for housing assistance [address]. [address] [phone] - Attestation Statements Document Initiated by Scribe: Yes Documenting Scribe: Brody Fraga Provider For Whom Scribe is Documenting (Include Credential): Adamaris Holliday MD Scribe Attestation: Brody Prasad , scribed for Adamaris Holliday MD on 01/04/18 at 0202.
[2018-01-03] MEDS ORDERED: Mouth Piece, Nicotine* 1 EACH CARTRIDGE INH SCH (22:47)
[2018-01-04] MEDS ORDERED: Ibuprofen TAB* 600 MG PO ONE (07:12)
[2018-01-04] MEDS ORDERED: Ibuprofen TAB* 600 MG ONE (07:13)
[2018-01-04 07:21] VITALS: BP 125/86
== END 2018-01-04 07:21 | disposition home or self-care (01) ==
LOC: ED 18:15
DX: F43.20 Adjustment disorder, unspecified (principal); F17.210 Nicotine dependence, cigarettes, uncomplicated
CPT/HCPCS: 36415; 80053; 80307; 80320; 80329; 81003; 81015; 84443; 85025; 87086; 96372; 99282; A9270-GY; G0480; J1885

== ENCOUNTER 2018-01-13 16:12 | Inpatient (IN) | payer OTHER ==
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
[2018-01-13 18:10] LABS: ABS Basophils 0.1 10^3/ul (0-0.2); ABS Eosinophils 0.1 10^3/ul (0-0.6); ABS Lymphocytes 1.8 10^3/ul (1.0-4.8); ABS Monocytes 0.4 10^3/ul (0-0.8); ABS Nucleated RBC 0 10^3/ul; Eosinophil % 0.8 % (0-6); Hematocrit 38 % (35-47); Hemoglobin 12.8 g/dl (12.0-16.0); Lymphocyte % 24.7 % (25-47); Mean Corpuscular HGB Conc 34 g/dl (31-36); Mean Corpuscular Hemoglobin 29 pg (27-31); Mean Corpuscular Volume 85 fL (80-97); Mean Platelet Volume 8.4 fL (7.4-10.4); Nucleated Red Blood Cells % 0; Platelet Count 316 10^3/ul (150-450); Red Blood Count 4.42 10^6/ul (4.00-5.40); Red Cell Distribution Width 14 % (10.5-15); White Blood Count 7.4 10^3/ul (3.5-10.8)
[2018-01-13 18:29] LABS: EGFR Non-African American 83.5 (>60)
[2018-01-13] MEDS ORDERED: Nicotine Inhaler* 10 MG AMP INH PRN (18:31)
[2018-01-13] MEDS ORDERED: Mouth Piece, Nicotine* 1 EACH CARTRIDGE INH ONE (19:00)
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
[2018-01-13 20:16] LABS: Urine Appearance Clear; Urine Blood 1+ (Negative); Urine Color Yellow; Urine Ketones Negative (Negative); Urine Protein Negative (Negative); Urine Red Blood Cell Trace(0-2/hpf) (Absent); Urine Urobilinogen Negative (Negative); Urine White Blood Cell Trace(0-5/hpf) (Absent)
[2018-01-13] MEDS ORDERED: Al Hydrox/Mg Hydrox/Simet LIQ* 30 ML UDC PO PRN (20:40)
[2018-01-13] MEDS ORDERED: Nicotine GUM* 2 MG PO PRN (20:40)
[2018-01-13] MEDS ORDERED: QUEtiapine TAB* 25 MG PO PRN (20:40)
[2018-01-14] MEDS: Vitamin THERAPEUTIC TAB PO SCH (10:09)
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
[2018-01-14] MEDS: QUEtiapine TAB* 25 MG PO SCH (23:14)
[2018-01-15] MEDS: Vitamin THERAPEUTIC TAB PO SCH (09:46)
[2018-01-15] MEDS: QUEtiapine TAB* 25 MG PO SCH (22:20)
[2018-01-16] MEDS: QUEtiapine TAB* 25 MG PO SCH ×2 (02:05→22:49)
[2018-01-16] MEDS: Vitamin THERAPEUTIC TAB PO SCH (08:21)
--- NOTE | 2018-01-16 18:08 | PN ---
Subjective - Subjective Date of Service: 01/16/18 Service Type: [id number] Hosp care 15 min low complexity Subjective: Ms. Ventura says her only problem is homelessness and unemployment. Denies any mental health problems despite the reports during admission. Says after sleeping ell under a roof and eating good food she doesn't feel depressed anymore. Denies SI or HI. Objective - Appearance Appearance: Healthy Appearing, Thin Framed Dysmorphic Features: No Hygiene: Normal Grooming: Well Kept - Behavior Psychomotor Activities: Normal Exhibits Abnormal Movement: No - Attitude and Relatedness Attitude and Relatedness: Appropriate Eye Contact: Good - Speech Quality: Unpressured Latencies: Normal Quantity: Appropriate - Mood Patient's Decription of Mood: "Fine" - Affect Observed Affect: Non-labile - Thought Process Patient's Thought Process: Coherent, Goal Directed Thought Content: No Passive Wish, No Suicidal Planning, No Homicidal Ideation, No Paranoid Ideation - Sensorium Experiencing Hallucinations: No, Sensorium is Clear Type of Hallucinations: Visual: No, Auditory: No, Command: No - Level of Consciousness Level of Consciousness: Alert Orientation: Yes Intact, Yes Orientated to Time, Yes Orientated to Place, Yes Orientated to Person - Impulse Control Impulse Control: Intact - Insight and Judgement Insight and Judgement: Poor - Group Participation Particating in Group Activities: No - Medication Management Medication Management Adherence: Yes Assessment - Assessment Merits Inpatient Hospitalization: For Ongoing Evaluation, For Discharge Planning Clinical Impression: Not in any acute mental or psychiatric problem at this time and appears comfortable in the milieu. Plan - Plan Treatment Plan: Name: ANN VENTURA Birthdate: 1960 [id number] Continued Medication Management: Continue Outpt Medication Medications: Current Medications Al Hydrox/Mg Hydrox/Simethicone (Maalox Plus*) 30 ml PO Q4H PRN PRN Reason: INDIGESTION Multivitamins (Theragran Tab*) 1 tab PO DAILY [facility] Last Admin: 01/16/18 08:21 Dose: Not Given Nicotine (Nicotine Inhaler*) 10 mg INH Q2H PRN PRN Reason: CRAVING Nicotine Polacrilex (Nicotine Gum*) 2 mg PO Q2H PRN PRN Reason: CRAVING Quetiapine Fumarate (Seroquel Tab*) 25 mg PO BEDTIME [facility] Last Admin: 01/16/18 02:05 Dose: 25 mg - Discharge Plan Discharge Plan: Outpatient Follow Up Outpatient Program: [facility]
[2018-01-17] MEDS: Vitamin THERAPEUTIC TAB PO SCH (08:49)
--- NOTE | 2018-01-17 12:43 | PN ---
Subjective - Subjective Date of Service: 01/17/18 Service Type: [id number] Hosp care 15 min low complexity Subjective: Patient was seen by self, discussed with treatment team, chart was reviewed. Patient has been intermittently compliant with her medications, no reported side effects. Patient reported that she is feeling better as she was able to sleep better, less depression and no suicidal thoughts. Patient continues to persevere on her previous delusional thoughts and experiences at housing situations where she did not feel safe. Patient showed some insight into her delusions and ability to work with others around that without getting angry/ agitated. Patient sleeping has been better on the unit and agreed to take Seroquel at bedtime. Patient eating has been good. Patient has been cooperative with staff. Patient behavior has been in control and safe on all checks. Patient has been reporting no suicidal or homicidal ideation. Psychotic symptoms of paranoid delusions but no hallucinations. Objective - Appearance Appearance: Healthy Appearing, Thin Framed Dysmorphic Features: No Hygiene: Normal Grooming: Fairly Well Kept - Behavior Psychomotor Activities: Normal Exhibits Abnormal Movement: No - Attitude and Relatedness Attitude and Relatedness: Cooperative Eye Contact: Fair - Speech Quality: Unpressured Latencies: Normal Quantity: Appropriate - Mood Patient's Decription of Mood: "Okay" - Affect Observed Affect: Constricted - blunt Affect Consistent with: Euthymia - some anxiety - Thought Process Patient's Thought Process: Goal Directed Thought Content: Yes Paranoid Ideation - less intense and did not get agitated upon challenging delusions, No Passive Wish, No Suicidal Planning, No Homicidal Ideation - Sensorium Experiencing Hallucinations: No, Sensorium is Clear Type of Hallucinations: Visual: No, Auditory: No, Command: No - Level of Consciousness Level of Consciousness: Alert Orientation: Yes Intact, Yes Orientated to Time, Yes Orientated to Place, Yes Orientated to Person - Impulse Control Impulse Control: Intact - Insight and Judgement Insight and Judgement: Poor - insight improving, judgement fair at this time - Group Participation Particating in Group Activities: Yes - Medication Management Medication Management Adherence: Partial Assessment - Assessment Merits Inpatient Hospitalization: For Immediate Safety, For Stabilization, For Discharge Planning Inpatient DSM-V Dx: F43.23 Clinical Impression: Not in any acute mental or psychiatric problem at this time and appears comfortable in the milieu. MHU: Problem List - Patient Problems (1) Delusional disorder Current Visit: No Status: Acute Code(s): F22 - DELUSIONAL DISORDERS SNOMED Code(s): 26344932 (2) Adjustment disorder with mixed anxiety and depressed mood Current Visit: Yes Status: Acute Plan - Plan Treatment Plan: Name: ANN VENTURA Birthdate: 1960 [id number] - Patient with paranoid delusions continues to be hospitalized due to recent suicidal thoughts with plan, psychosocial stress, homelessness, anxiety and depression. - Patient's medications were continued and encouraged compliance with treatment. - Patient will be monitored for improvement and side effects. Risk and benefits were discussed. - Patient was encouraged to continue his participation in the milieu, group and individual therapy. Medications: Current Medications Al Hydrox/Mg Hydrox/Simethicone (Maalox Plus*) 30 ml PO Q4H PRN PRN Reason: INDIGESTION Multivitamins (Theragran Tab*) 1 tab PO DAILY [facility] Last Admin: 01/17/18 08:49 Dose: Not Given Nicotine (Nicotine Inhaler*) 10 mg INH Q2H PRN PRN Reason: CRAVING Nicotine Polacrilex (Nicotine Gum*) 2 mg PO Q2H PRN PRN Reason: CRAVING Quetiapine Fumarate (Seroquel Tab*) 25 mg PO BEDTIME [facility] Last Admin: 01/16/18 22:49 Dose: Not Given
[2018-01-17] MEDS: QUEtiapine TAB* 25 MG PO SCH (19:15)
[2018-01-18] MEDS: Vitamin THERAPEUTIC TAB PO SCH (10:11)
--- NOTE | 2018-01-18 11:53 | PN ---
Subjective - Subjective Date of Service: 01/18/18 Service Type: [id number] Hosp care 15 min low complexity Subjective: Patient was seen by self, discussed with treatment team, chart was reviewed. Patient reports taking her medications, no reported side effects. Patient reported that she is feeling better as she was able to sleep better, not depressed and no suicidal thoughts. Patient less paranoid today but demanding and narcisstic. Patient still stuck in her past experience that constitutes her trust issues towards things around her. But patient has been able to manage situation around her without getting agitated. Patient is too particular about her housing. Patient showed some insight into her delusions and ability to work with others around that without getting angry/agitated. Patient sleeping has been better on the unit and took Seroquel at bedtime. Patient eating has been good. Patient has been cooperative with staff but feel the need to direct them about issues on the unit that staff needs to address. Patient behavior has been in control and safe on all checks. Patient has been reporting no suicidal or homicidal ideation. No hallucinations. Objective - Appearance Appearance: Healthy Appearing Dysmorphic Features: No Hygiene: Normal Grooming: Fairly Well Kept - Behavior Psychomotor Activities: Normal Exhibits Abnormal Movement: No - Attitude and Relatedness Attitude and Relatedness: Cooperative Eye Contact: Fair - Speech Quality: Unpressured Latencies: Normal Quantity: Appropriate - Affect Observed Affect: Constricted - blunt - Thought Process Patient's Thought Process: Over Inclusive Thought Content: Yes Paranoid Ideation - less, No Passive Wish, No Suicidal Planning, No Homicidal Ideation - Sensorium Experiencing Hallucinations: No, Sensorium is Clear Type of Hallucinations: Visual: No, Auditory: No, Command: No - Level of Consciousness Level of Consciousness: Alert Orientation: Yes Intact, Yes Orientated to Time, Yes Orientated to Place, Yes Orientated to Person - Impulse Control Impulse Control: Intact - Insight and Judgement Insight and Judgement: Fair - Group Participation Particating in Group Activities: Yes - Medication Management Medication Management Adherence: Yes Assessment - Assessment Merits Inpatient Hospitalization: For Immediate Safety, For Stabilization, For Discharge Planning Inpatient DSM-V Dx: F43.23 Clinical Impression: Not in any acute mental or psychiatric problem at this time and appears comfortable in the milieu. MHU: Problem List - Patient Problems (1) Delusional disorder Current Visit: No Status: Acute Code(s): F22 - DELUSIONAL DISORDERS SNOMED Code(s): 85969301 (2) Adjustment disorder with mixed anxiety and depressed mood Current Visit: Yes Status: Acute Plan - Plan Treatment Plan: Name: ANN VENTURA Birthdate: 1960 [id number] - Patient with paranoid delusions continues to be hospitalized due to recent suicidal thoughts with plan, psychosocial stress, homelessness, anxiety and depression. - Patient's medications were continued and encouraged compliance with treatment. - Patient will be monitored for improvement and side effects. Risk and benefits were discussed. - Patient was encouraged to continue his participation in the milieu, group and individual therapy. Medications: Current Medications Al Hydrox/Mg Hydrox/Simethicone (Maalox Plus*) 30 ml PO Q4H PRN PRN Reason: INDIGESTION Multivitamins (Theragran Tab*) 1 tab PO DAILY [facility] Last Admin: 01/18/18 10:11 Dose: Not Given Nicotine (Nicotine Inhaler*) 10 mg INH Q2H PRN PRN Reason: CRAVING Nicotine Polacrilex (Nicotine Gum*) 2 mg PO Q2H PRN PRN Reason: CRAVING Quetiapine Fumarate (Seroquel Tab*) 25 mg PO BEDTIME [facility] Last Admin: 01/17/18 19:15 Dose: 25 mg
[2018-01-18] MEDS: QUEtiapine TAB* 25 MG PO SCH (21:12)
--- NOTE | 2018-01-19 13:52 | PN ---
Subjective - Subjective Date of Service: 01/19/18 Service Type: [id number] Hosp care 15 min low complexity Subjective: Patient was seen by self, discussed with treatment team, chart was reviewed. Patient reports taking her medications, no reported side effects. Patient reported that she is feeling better and hopeful with the meeting that is scheduled today with an agency to help with housing. As patient reports homelessness was trigger to her recent suicidal thoughts and plan. Patient was not paranoid today and less demanding and narcisstic. Patient is growing insight into her delusions and ability to work with others around that without getting angry/agitated. Patient sleeping has been better on the unit and taking Seroquel at bedtime. Patient eating has been good. Patient has been cooperative with staff and team agreed to darcie her with staff pass. Patient has been attending therapy to learn skills help her cope and work with her delusions in distress. Patient behavior has been in control and safe on all checks. Patient has been reporting no suicidal or homicidal ideation. No hallucinations. Objective - Appearance Appearance: Healthy Appearing Dysmorphic Features: No Hygiene: Normal Grooming: Fairly Well Kept - Behavior Psychomotor Activities: Normal Exhibits Abnormal Movement: No - Attitude and Relatedness Attitude and Relatedness: Cooperative - more Eye Contact: Fair - Speech Quality: Unpressured Latencies: Normal Quantity: Appropriate - Mood Patient's Decription of Mood: "Anxious" - Affect Observed Affect: Fair Affect Consistent with: Euthymia - Thought Process Patient's Thought Process: Coherent Thought Content: No Passive Wish, No Suicidal Planning, No Homicidal Ideation, No Paranoid Ideation - Sensorium Experiencing Hallucinations: No, Sensorium is Clear Type of Hallucinations: Visual: No, Auditory: No, Command: No - Level of Consciousness Level of Consciousness: Alert Orientation: Yes Intact, Yes Orientated to Time, Yes Orientated to Place, Yes Orientated to Person - Impulse Control Impulse Control: Intact - Insight and Judgement Insight and Judgement: Fair - Group Participation Particating in Group Activities: Yes Assessment - Assessment Merits Inpatient Hospitalization: For Immediate Safety, For Stabilization, For Discharge Planning Inpatient DSM-V Dx: F43.23 Clinical Impression: Not in any acute mental or psychiatric problem at this time and appears comfortable in the milieu. MHU: Problem List - Patient Problems (1) Delusional disorder Current Visit: No Status: Acute Code(s): F22 - DELUSIONAL DISORDERS SNOMED Code(s): 66751893 (2) Adjustment disorder with mixed anxiety and depressed mood Current Visit: Yes Status: Acute Plan - Plan Treatment Plan: Name: ANN VENTURA Birthdate: 1960 [id number] - Patient with paranoid delusions continues to be hospitalized due to recent suicidal thoughts with plan, psychosocial stress, homelessness, anxiety and depression. Need stable placement upon discharge. - Patient's medications were continued and encouraged compliance with treatment. - Patient will be monitored for improvement and side effects. Risk and benefits were discussed. - Patient was encouraged to continue his participation in the milieu, group and individual therapy. Medications: Current Medications Al Hydrox/Mg Hydrox/Simethicone (Maalox Plus*) 30 ml PO Q4H PRN PRN Reason: INDIGESTION Nicotine (Nicotine Inhaler*) 10 mg INH Q2H PRN PRN Reason: CRAVING Nicotine Polacrilex (Nicotine Gum*) 2 mg PO Q2H PRN PRN Reason: CRAVING Quetiapine Fumarate (Seroquel Tab*) 25 mg PO BEDTIME [facility] Last Admin: 01/18/18 21:12 Dose: 25 mg
[2018-01-19] MEDS: QUEtiapine TAB* 25 MG PO SCH (20:50)
[2018-01-20] MEDS: QUEtiapine TAB* 25 MG PO SCH (21:14)
[2018-01-21 08:37] VITALS: BP 123/82
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
== END 2018-01-21 10:55 | disposition home or self-care (01) | DRG 755 ==
LOC: ED 16:12 → BSU 20:31
PROVIDERS: ADMIT Psychiatry & Neurology Psychiatry; ATTEND Psychiatry & Neurology Psychiatry
DX: F43.23 Adjustment disorder with mixed anxiety and depressed mood (principal); R45.851 Suicidal ideations; Z62.810 Personal history of physical and sexual abuse in childhood; F20.0 Paranoid schizophrenia; F60.0 Paranoid personality disorder; I10 Essential (primary) hypertension; G47.9 Sleep disorder, unspecified; Z90.89 Acquired absence of other organs; Z88.5 Allergy status to narcotic agent; Z59.0 Homelessness; Z56.0 Unemployment, unspecified; Z82.49 Family history of ischemic heart disease and other diseases of the circulatory system; Z83.3 Family history of diabetes mellitus; Z81.8 Family history of other mental and behavioral disorders; Z72.89 Other problems related to lifestyle
CPT/HCPCS: 36415; 80053; 80307; 80320; 80329; 81003; 81015; 84443; 85025; 87086; 99222; 99231; 99238; 99285; A9270-GY; G0480